=== PATIENT | male | born 1985 ===

== ENCOUNTER 2020-05-08 12:11 | Inpatient (IN) | payer OTHER, SELFPAY ==
[2020-05-08] MEDS ORDERED: ACETAMINOPHEN 500 MG TAB PO STA (12:26)
[2020-05-08] MEDS ORDERED: SODIUM CHLORIDE 0.9% 1000 ML 1,000 ML IV ONE (12:28)
[2020-05-08] MEDS ORDERED: AZITHROMYCIN 500 MG in SODIUM CHLORIDE 0.9% 250ML 250 ML IV ONE (13:00)
[2020-05-08] MEDS ORDERED: cefTRIAXone/NS 1 GM/50 ML 1 GM/50 ML BAG IV ONE (13:21)
[2020-05-08] MEDS ORDERED: dexAMETHasone 4 MG/ML VIAL IV ONE (13:23)
--- NOTE | 2020-05-08 13:26 | XRay Report ---
CHEST 1 VIEW 05/08/2020 12:50 PM INDICATION / CLINICAL INFORMATION: pneumonia. COMPARISON: None available. FINDINGS: SUPPORT DEVICES: None. HEART / MEDIASTINUM: No significant abnormality. LUNGS / PLEURA: Moderately extensive bilateral patchy pulmonary opacities. No pneumothorax. ADDITIONAL FINDINGS: No significant additional findings. IMPRESSION: 1. Bilateral pulmonary opacities. Although nonspecific, atypical or viral pneumonia could be consider ed. Signer Name: Linda Swann MD Signed: 05/08/2020 1:21 PM Workstation Name: [id number]
--- NOTE | 2020-05-08 13:26 | Emergency Department Report ---
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 He tested positive for COVID at [facility] recently. I presume this was a PCR and not an antibody test. He has had a cough and fever. He became dyspneic on exertion. He stated that he tried to stay home but with the shortness of breath he thought it was best to come to the hospital. He has no prior significant medical history. He does not take any routine medication. Patient works at [employer] and multiple employees are positive for COVID there. -: Gradual, days(s) - Related Data Allergies Allergy/AdvReac Type Severity Reaction Status Date / Time No Known Allergies Allergy Verified 05/08/20 12:47 ED Review of Systems ROS: Stated complaint: POS COVID/SOB Other details as noted in HPI ED Past Medical Hx - Past Medical History Previous Medical History?: No - Surgical History Past Surgical History?: No - Social History Smoking Status: Never Smoker Substance Use Type: None ED Physical Exam - General Limitations: No Limitations ED Course Vital Signs 05/08/20 12:21 Temperature 101.2 F H Pulse Rate 111 H Respiratory 24 Rate Blood Pressure 140/81 [Right] O2 Sat by Pulse 92 Oximetry - Reevaluation(s) Reevaluation #1: Patient pulse oximetry improved from 92 to the high 90s with 2 L of nasal cannula supplemental oxygen. His work of breathing is good. He looks much better clinically than his x-ray. This I believe is typical for a COVID-19 pa tiekanika's. COVID-19 is strongly suspected. The patient was given 6 mg of dexamethasone consistent with the recent [place] study of 11,000 patients showing benefit in hypoxic patients. He was also given antibiotics coverage with ceftriaxone and a azithromycin.his supplemental COVID-19 labs are consistent with COVID-19 infection. Hospitalist has been noted of the need to admit. 05/08/20 15:02 ED Medical Decision Making - Lab Data Result diagrams: 05/08/20 13:30 05/08/20 13:30 Laboratory Results - last 24 hr 0605/08/20 05/08/20 13:30 13:30 13:30 WBC 8.3 RBC 5.35 H Hgb 14.5 Hct 42.9 MCV 80 L MCH 27 L MCHC 34 RDW 13.9 Plt Count 177 Lymph % (Auto) 6.7 L [place] % (Auto) 6.0 Eos % (Auto) 0.0 Baso % (Auto) 0.1 Lymph # 0.6 L [place] # 0.5 Eos # 0.0 Baso # 0.0 Seg Neutrophils % 87.2 H Seg Neutrophils # 7.3 PT 13.7 INR 1.07 D-Dimer 6025.93 H VBG pH Sodium Potassium Chloride Carbon Dioxide Anion Gap BUN Creatinine Estimated GFR BUN/Creatinine Ratio Glucose Lactic Acid 1.20 Calcium Magnesium Ferritin Total Bilirubin Direct Bilirubin AST ALT Alkaline Phosphatase Lactate Dehydrogenase C-Reactive Protein Total Protein Albumin Albumin/Globulin Ratio 05/08/20 05/08/20 05/08/20 13:30 13:30 13:30 WBC RBC Hgb Hct MCV MCH MCHC RDW Plt Count Lymph % (Auto) [place] % (Auto) Eos % (Auto) Baso % (Auto) Lymph # [place] # Eos # Baso # Seg Neutrophils % Seg Neutrophils # PT INR D-Dimer VBG pH 7.411 Sodium 133 L Potassium 4.7 Chloride 95.9 L Carbon Dioxide 25 Anion Gap 17 BUN 14 Creatinine 1.0 Estimated GFR > 60 BUN/Creatinine Ratio 14 Glucose 103 H Lactic Acid Calcium 8.4 Magnesium 2.40 H Ferritin 1530.0 H Total Bilirubin 0.50 Direct Bilirubin < 0.2 AST 149 H ALT 102 H Alkaline Phosphatase 73 Lactate Dehydrogenase 870 H C-Reactive Protein 19.70 H Total Protein 7.2 Albumin 3.7 L Albumin/Globulin Ratio 1.1 - EKG Data -: EKG Interpreted by Me EKG shows normal: sinus rhythm, axis, intervals, QRS complexes, ST-T waves Rate: normal - EKG Data Interpretation: normal EKG - Radiology Data Radiology results: report reviewed, image reviewed (IMPRESSION: ) interpreted by me: C/W COVID 19 infection. Critical care attestation.: If time is entered above; I have spent that time in minutes in the direct care of this critically ill patient, excluding procedure time. ED Disposition Clinical Impression: Hypoxia, COVID-19 Bilateral pneumonia Qualifiers: Pneumonia type: due to unspecified organism Lung location: unspecified part of lung Qualified Code(s): J18.9 - Pneumonia, unspecified organism Disposition: 09 OP ADMIT IP TO THIS HOSP Is pt being admited?: Yes Does the pt Need Aspirin: No Condition: Stable Instructions: Bacterial Pneumonia (ED) Referrals: PRIMARY CARE, [Primary Care Provider] - 3-5 Days Time of Disposition: 15:07
[2020-05-08 13:51] LABS: Basophils % (Auto) 0.1 % (0.0-1.8); Hematocrit 42.9 % (35.5-45.6); Hemoglobin 14.5 gm/dl (11.8-15.2); Lymphocytes # (Auto) 0.6 K/mm3 (1.2-5.4); Lymphocytes % (Auto) 6.7 % (13.4-35.0); Mean Corpuscular HGB Conc 34 % (32-34); Mean Corpuscular Volume 80 fl (84-94); Monocytes # (Auto) 0.5 K/mm3 (0.0-0.8); Platelet Count 177 K/mm3 (140-440); Red Blood Count 5.35 M/mm3 (3.65-5.03); Red Cell Distribution Width 13.9 % (13.2-15.2)
[2020-05-08 14:06] LABS: INR 1.07 (0.87-1.13)
[2020-05-08 14:09] LABS: Alanine Aminotransferase 102 units/L (7-56); Albumin 3.7 g/dL (3.9-5); BUN/Creatinine Ratio 14; Blood Urea Nitrogen 14 mg/dL (9-20); Calcium 8.4 mg/dL (8.4-10.2); Hemolysis Index 0
[2020-05-08 14:10] LABS: Bilirubin,Direct < 0.2 mg/dL (0-0.2)
[2020-05-08 15:18] LABS: Bilirubin,Urine NEG (Negative); Blood,Urine SM (Negative); Color,Urine Yellow (Yellow); Urobilinogen,Urine < 2.0 mg/dL (<2.0); WBC,Urine < 1.0 /HPF (0.0-6.0)
[2020-05-08] MEDS ORDERED: ACETAMINOPHEN 325 MG TAB PO PRN (16:11)
[2020-05-08] MEDS ORDERED: ONDANSETRON 4 MG/2 ML INJ IV PRN (16:11)
--- NOTE | 2020-05-08 16:11 | History and Physical Report ---
History of Present Illness Chief complaint: I feel sick, I cannot stop coughing History of present illness: 34 YO Male with Obesity Hypoventilation Syndrome presents to ED for evaluation. Patient states that he has been "feeling sick" over the past 5 days with persistently worsening symptoms over the same timeframe. Patient states that he has experienced dry cough, generalized weakness, malaise, decreased exercise tolerance, shortness of breath as well as fever. Patient states that he presented to [facility] and underwent COVID-19 testing and tested positive. Patient acknowledges exposure to COVID-19. Patient transported to [facility] via private vehicle for further care and evaluation. Patient seen and evaluated in the emergency department. Lab and imaging studies reviewed. Patient underwent chest x-ray which showed bilateral infiltrates consistent with pneumonia, as well as pulse oximetry of 89% with exertion. Patient found to have bilateral pneumonia complicated by acute hypoxemic respiratory failure suspected secondary to COVID-19. Patient admitted to medical floor and initiated on pneumonia protocol as well as COVID-19 protocol. Infectious disease service consulted in ED. Pulmonology service consulted in ED. Patient denies chest pain, palpitations, skin rash, unilateral leg swelling, calf pain, prolonged travel/immobility, individual/family history of DVT/PE/bleeding/blood clotting disorders. No prior admission for review. No medication listed for reconciliation at the time of my admission. Past History Past Medical History: other (See HPI) Past Surgical History: No surgical history, Other (Reviewed) Social history: single. denies: smoking, alcohol abuse, prescription drug abuse, IV drug use Family history: hypertension Medications and Allergies Allergies Allergy/AdvReac Type Severity Reaction Status Date / Time No Known Allergies Allergy Verified 05/08/20 12:47 Review of Systems Constitutional: fever, fatigue, weakness, malaise, no weight loss, no weight gain Ears, nose, mouth and throat: no ear pain, no ear discharge, no tinnitis, no decreased hearing, no nose pain, no nasal congestion Cardiovascular: no chest pain, no orthopnea, no palpitations, no rapid/irregular heart beat Respiratory: cough, cough with sputum, shortness of breath, dyspnea on exertion, no pain on inspiration Gastrointestinal: no abdominal pain, no nausea, no vomiting, no diarrhea, no constipation Genitourinary Male: no hematuria, no flank pain, no discharge, no urinary frequency, no urinary hesitancy Rectal: no pain, no incontinence, no bleeding Integumentary: no rash, no pruritis, no redness, no sores, no wounds Neurological: no transient paralysis, no paralysis, no weakness, no numbness, no tingling, no seizures Psychiatric: no anxiety, no memory loss, no change in sleep habits, no insomnia, no change in appetite, no change in libido Endocrine: no cold intolerance, no heat intolerance, no excessive thirst, no polydipsia, no polyuria, no nocturia Hematologic/Lymphatic: no easy bruising, no easy bleeding Allergic/Immunologic: no urticaria, no allergic rhinitis, no wheezing, no persistent infections, no angioedema Exam - Constitutional Vitals: Temp Pulse Resp BP Pulse Ox 101.2 F H 111 H 24 140/81 92 05/08/20 12:21 05/08/20 12:21 05/08/20 12:21 05/08/20 12:21 05/08/20 12:21 General appearance: Present: mild distress, obese - EENT Eyes: Present: PERRL ENT: hearing intact, clear oral mucosa - Neck Neck: Present: supple, normal ROM - Respiratory Respiratory effort: labored, accessory muscle use Respiratory: bilateral: diminished, rhonchi - Cardiovascular Heart Sounds: Present: S1 & S2. Absent: rub, click - Extremities Extremities: pulses symmetrical, No edema Peripheral Pulses: within normal limits - Abdominal General gastrointestinal: Present: soft, non-tender, non-distended, normal bowel sounds Male genitourinary: Present: normal - Integumentary Integumentary: Present: clear, warm, dry - Musculoskeletal Musculoskeletal: gait normal, strength equal bilaterally - Psychiatric Psychiatric: appropriate mood/affect, intact judgment & insight - Neurologic Neurologic: CNII-XII intact, moves all extremities Results - Labs CBC & Chem 7: 05/08/20 13:30 05/08/20 13:30 Labs: Abnormal lab results 05/08/20 05/08/20 05/08/20 Range/Units 13:30 13:30 13:30 RBC 5.35 H (3.65-5.03) M/mm3 MCV 80 L (84-94) fl MCH 27 L (28-32) pg Lymph % (Auto) 6.7 L (13.4-35.0) % Lymph # 0.6 L (1.2-5.4) K/mm3 Seg Neutrophils % 87.2 H (40.0-70.0) % D-Dimer 6025.93 H (0-234) ng/mlDDU Sodium (137-145) mmol/L Chloride (98-107) mmol/L Glucose (75-100) mg/dL Magnesium (1.7-2.3) mg/dL Ferritin 1530.0 H (13.0-400.0) ng/mL AST (5-40) units/L ALT (7-56) units/L Lactate Dehydrogenase (91-180) units/L C-Reactive Protein (0.00-1.30) mg/dL Albumin (3.9-5) g/dL 05/08/20 Range/Units 13:30 RBC (3.65-5.03) M/mm3 MCV (84-94) fl MCH (28-32) pg Lymph % (Auto) (13.4-35.0) % Lymph # (1.2-5.4) K/mm3 Seg Neutrophils % (40.0-70.0) % D-Dimer (0-234) ng/mlDDU Sodium 133 L (137-145) mmol/L Chloride 95.9 L (98-107) mmol/L Glucose 103 H (75-100) mg/dL Magnesium 2.40 H (1.7-2.3) mg/dL Ferritin (13.0-400.0) ng/mL AST 149 H (5-40) units/L ALT 102 H (7-56) units/L Lactate Dehydrogenase 870 H (91-180) units/L C-Reactive Protein 19.70 H (0.00-1.30) mg/dL Albumin 3.7 L (3.9-5) g/dL Assessment and Plan - Patient Problems (1) Acute hypoxemic respiratory failure Current Visit: Yes Status: Acute Plan to address problem: Chest x-ray, supplemental oxygen, pulse oximetry, incentive spirometry, prone positioning while in bed, pulmonary toilet, pulmonology team consulted in ED. (2) Obesity hypoventilation syndrome Current Visit: Yes Status: Acute Plan to address problem: Supplemental oxygen, pulse oximetry, noninvasive positive pressure ventilation as clinically indicated, increase physical activity at discharge, outpatient pulmonology evaluation for sleep study. (3) Bilateral pneumonia Current Visit: Yes Status: Acute Qualifiers: Pneumonia type: due to unspecified organism Lung location: unspecified part of lung Qualified Code(s): J18.9 - Pneumonia, unspecified organism Plan to address problem: Pneumonia protocol: Chest x-ray, CBC, CMP, supplemental oxygen, pulse oximetry, IV antibiotic therapy, incentive spirometry, pulmonary toilet. (4) COVID-19 Current Visit: Yes Status: Acute Plan to address problem: COVID-19 protocol: Infectious disease service consulted, pulmonology team consulted, coronavirus PCR ordered in ED. Prone positioning while in bed. (5) DVT prophylaxis Current Visit: Yes Status: Acute Plan to address problem: SCD to bilateral lower extremities while in bed, prophylactic heparin
[2020-05-08] MEDS: HEPARIN 5,000 UNIT/1 ML VIAL SUB-Q SCH (22:26)
[2020-05-09] MEDS ORDERED: MORPHINE 2 MG/1 ML INJ IV ONE ×2 (00:12→05:43)
[2020-05-09] MEDS: guaiFENesin DM 200/20 MG ORAL LIQD 10 ML PO PRN ×2 (05:35→21:24)
[2020-05-09 05:59] LABS: Basophils % (Auto) 0.1 % (0.0-1.8); Hematocrit 42.2 % (35.5-45.6); Hemoglobin 13.9 gm/dl (11.8-15.2); Lymphocytes # (Auto) 0.6 K/mm3 (1.2-5.4); Lymphocytes % (Auto) 6.9 % (13.4-35.0); Mean Corpuscular HGB Conc 33 % (32-34); Mean Corpuscular Volume 83 fl (84-94); Monocytes # (Auto) 0.5 K/mm3 (0.0-0.8); Monocytes % (Auto) 5.8 % (0.0-7.3); Platelet Count 183 K/mm3 (140-440); Red Blood Count 5.12 M/mm3 (3.65-5.03)
[2020-05-09 06:58] LABS: BUN/Creatinine Ratio 14; Blood Urea Nitrogen 13 mg/dL (9-20); Calcium 8.1 mg/dL (8.4-10.2); Hemolysis Index 6
--- NOTE | 2020-05-09 09:13 | Consultation ---
History of Present Illness Consult date: 05/09/20 Requesting physician: MAT ATWOOD Reason for consult: hypoxemia History of present illness: 34 y/o male admitted with acute respiratory failure. CXR showing bilateral alveolar infiltrates and mild cardiomegaly. Febrile at 101.2 on admission. Concern for COVID so placed in isolation. Started on Rocephin and Azithro. Currently on HFNC at 14 liters and 100% with sat of 92. Per charting, patient had a positive COVID test at [facility]. Past History Past Medical History: other ([facility]) Past Surgical History: No surgical history, Other (Reviewed) Social history: single. denies: smoking, alcohol abuse, prescription drug abuse, IV drug use Family history: hypertension Medications and Allergies Allergies Allergy/AdvReac Type Severity Reaction Status Date / Time No Known Allergies Allergy Verified 05/08/20 12:47 Home Medications Medication Instructions Recorded Confirmed Last Taken Type No Known Home Medications [No 05/08/20 05/08/20 Unknown History Reported Home Medications] Active Meds: Active Medications Acetaminophen (Tylenol) 650 mg PO Q4H PRN PRN Reason: Pain MILD(1-3)/Fever >100.5/MESSINA Guaifenesin (Guaifenesin Dm Syrup) 10 ml PO Q6H PRN PRN Reason: Cough Last Admin: 05/09/20 05:35 Dose: 10 ml Documented by: Heparin Sodium (Porcine) (Heparin) 5,000 unit SUB-Q Q12HR POP Last Admin: 05/08/20 22:26 Dose: 5,000 unit Documented by: Ceftriaxone Sodium (Rocephin/Ns 2 Gm/100 Ml) 2 gm in 100 mls @ 200 mls/hr IV Q24HR POP; Protocol Azithromycin 500 mg/ Sodium (Chloride) 250 mls @ 250 mls/hr IV Q24HR POP; Protocol Methylprednisolone Sodium Succinate (Solu-Medrol) 40 mg IV Q8HR POP Ondansetron HCl (Zofran) 4 mg IV Q8H PRN PRN Reason: Nausea And Vomiting Last Admin: 05/09/20 00:11 Dose: 4 mg Documented by: Sodium Chloride (Sodium Chloride Flush Syringe 10 Ml) 10 ml IV BID POP Last Admin: 05/08/20 22:26 Dose: 10 ml Documented by: Sodium Chloride (Sodium Chloride Flush Syringe 10 Ml) 10 ml IV PRN PRN PRN Reason: LINE FLUSH Physical Examination Vital signs: Vital Signs Temp Pulse Resp BP Pulse Ox 101.2 F H 111 H 24 140/81 92 05/08/20 12:21 05/08/20 12:21 05/08/20 12:21 05/08/20 12:21 05/08/20 12:21 General appearance: other (No exam secondary to conservation of PPE. Hospitalist to see this am) Results - Laboratory Findings CBC and BMP: 05/09/20 05:25 05/09/20 05:25 PT/INR, D-dimer PT 13.7 Sec. (12.2-14.9) 05/08/20 13:30 INR 1.07 (0.87-1.13) 05/08/20 13:30 D-Dimer 6025.93 ng/mlDDU (0-234) H 05/08/20 13:30 Abnormal lab findings: Abnormal Labs 05/08/20 05/08/20 05/08/20 13:30 13:30 13:30 RBC 5.35 H MCV 80 L MCH 27 L Lymph % (Auto) 6.7 L Lymph # 0.6 L Seg Neutrophils % 87.2 H D-Dimer 6025.93 H Sodium Chloride Glucose Calcium Magnesium Ferritin 1530.0 H AST ALT Lactate Dehydrogenase C-Reactive Protein Albumin 05/08/20 05/09/20 05/09/20 13:30 05:25 05:25 RBC 5.12 H MCV 83 L MCH 27 L Lymph % (Auto) 6.9 L Lymph # 0.6 L Seg Neutrophils % 87.2 H D-Dimer Sodium 133 L 136 L Chloride 95.9 L Glucose 103 H 145 H Calcium 8.1 L Magnesium 2.40 H Ferritin AST 149 H ALT 102 H Lactate Dehydrogenase 870 H C-Reactive Protein 19.70 H Albumin 3.7 L - Diagnostic Findings Chest x-ray: image reviewed Assessment and Plan 34 y/o male with positive COVID testing at outside facility, admitted with acute respiratory failure. 1. Agree with isolation 2. Stopped Prednisone and placed on solumedrol 40 IV q8 3. Agree with ID consult and need to consider actemera and remdisniver 4. Prone position as much as possible during the day and sleep prone at night 5. Did check BNP given morbid obesity and cardiomegaly on CXR, hold lasix, but does not need extra volume. Need to run on the net negative side. 6. Guarded prognosis, high risk for decompensation given morbid obesity. Will consider PPV if necessary to avoid intubation.
[2020-05-09] MEDS: cefTRIAXone/NS 2 GM/100 ML 2 GM/100 ML BAG IV SCH (09:58)
[2020-05-09] MEDS: methylPREDNISolone Sod Succinate 40 MG/1 ML INJ IV SCH ×3 (09:59→21:24)
[2020-05-09] MEDS: HEPARIN 5,000 UNIT/1 ML VIAL SUB-Q SCH ×2 (09:59→21:24)
[2020-05-09] MEDS ORDERED: AZITHROMYCIN 500 MG in SODIUM CHLORIDE 0.9% 250ML 250 ML IV SCH (10:00)
[2020-05-09] MEDS ORDERED: predniSONE 20 MG TAB PO SCH (10:00)
--- NOTE | 2020-05-09 13:48 | Consultation ---
History of Present Illness - Reason for Consult Consult date: 05/09/20 - History of Present Illness 34-year-old male past medical history obesity admitted with COVID-19. He notes that his symptoms began approximately 5 days prior to admission, and included dry cough with associated weakness, malaise, shortness of breath and fevers. He went to [facility] to get COVID-19 testing and tested positive at that time. He does note positive exposures to people with COVID-19. He is to be hypoxic on adm ission, and is now on high flow nasal cannula. Febrile to 101.2 with a normal white count. Current receiving ceftriaxone and azithromycin. COVID-19 testing positive. Blood and urine cultures are c urrently pending. Procalcitonin is normal. Imaging personally reviewed: Chest x-ray: Bilateral opacities. Review of Systems: Bold if positive, otherwise negative General: fevers, chills, rigors HEENT: visual disturbance, diplopia, eye pain Respiratory: cough, sputum, hemoptysis, shortness of breath Cardiovascular: chest pain, syncope Gastrointestinal: nausea, vomiting, diarrhea, abdominal pain Genitourinary: dysuria, hematuria, flank pain Musculoskeletal: neck pain, back pain, joint pain, edema Neurologic: headaches, seizures Hematologic: easy bruising or bleeding Endocrine: night sweats, acute weight loss Skin: rash, jaundice, redness Psychiatric: suicidal, homicidal ideation Past History Past Medical History: other ([facility]) Past Surgical History: No surgical history, Other (Reviewed) Social history: single. denies: smoking, alcohol abuse, prescription drug abuse, IV drug use Family history: hypertension Medications and Allergies Allergies Allergy/AdvReac Type Severity Reaction Status Date / Time No Known Allergies Allergy Verified 05/08/20 12:47 Home Medications Medication Instructions Recorded Confirmed Last Taken Type No Known Home Medications [No 05/08/20 05/08/20 Unknown History Reported Home Medications] Active Meds: Active Medications Acetaminophen (Tylenol) 650 mg PO Q4H PRN PRN Reason: Pain MILD(1-3)/Fever >100.5/MESSINA Azithromycin (Zithromax) 500 mg PO QDAY POP Guaifenesin (Guaifenesin Dm Syrup) 10 ml PO Q6H PRN PRN Reason: Cough Last Admin: 05/09/20 05:35 Dose: 10 ml Documented by: Heparin Sodium (Porcine) (Heparin) 5,000 unit SUB-Q Q12HR [facility] Last Admin: 05/09/20 09:59 Dose: 5,000 unit Documented by: Ceftriaxone Sodium (Rocephin/Ns 2 Gm/100 Ml) 2 gm in 100 mls @ 200 mls/hr IV Q24HR [facility]; Protocol Last Admin: 05/09/20 09:58 Dose: 200 mls/hr Documented by: REMDESIVIR 200 mg/ Sodium (Chloride) 250 mls @ 500 mls/hr IV ONCE ONE Stop: 05/09/20 15:29 REMDESIVIR 100 mg/ Sodium (Chloride) 250 mls @ 500 mls/hr IV Q24H [facility] Stop: 05/13/20 15:29 Sodium Chloride (Nacl 0.9%) 50 mls @ 200 mls/hr IV Q24H [facility] Stop: 05/13/20 15:14 Methylprednisolone Sodium Succinate (Solu-Medrol) 40 mg IV Q8HR [facility] Last Admin: 05/09/20 09:59 Dose: 40 mg Documented by: Ondansetron HCl (Zofran) 4 mg IV Q8H PRN PRN Reason: Nausea And Vomiting Last Admin: 05/09/20 00:11 Dose: 4 mg Documented by: Sodium Chloride (Sodium Chloride Flush Syringe 10 Ml) 10 ml IV BID [facility] Last Admin: 05/09/20 10:00 Dose: 10 ml Documented by: Sodium Chloride (Sodium Chloride Flush Syringe 10 Ml) 10 ml IV PRN PRN PRN Reason: LINE FLUSH Physical Examination - Physical Exam Narrative exam: Physical exam deferred due to PPE conservation strategy. Please refer to primary team note for full exam. - Constitutional Vitals: Vital Signs Temp Pulse Resp BP Pulse Ox 99.0 F 70 16 116/70 92 05/09/20 05:17 05/09/20 05:17 05/09/20 05:17 05/09/20 05:17 05/09/20 08:47 Temperature -Last 24 Hours Temperature 99.0 F Results - Labs CBC & Chem 7: 05/09/20 05:25 05/09/20 05:25 Labs: Abnormal lab results 05/08/20 05/08/20 05/08/20 Range/Units 13:30 13:30 13:30 RBC 5.35 H (3.65-5.03) M/mm3 MCV 80 L (84-94) fl MCH 27 L (28-32) pg Lymph % (Auto) 6.7 L (13.4-35.0) % Lymph # 0.6 L (1.2-5.4) K/mm3 Seg Neutrophils % 87.2 H (40.0-70.0) % D-Dimer 6025.93 H (0-234) ng/mlDDU Sodium (137-145) mmol/L Chloride (98-107) mmol/L Glucose (75-100) mg/dL Calcium (8.4-10.2) mg/dL Magnesium (1.7-2.3) mg/dL Ferritin 1530.0 H (13.0-400.0) ng/mL AST (5-40) units/L ALT (7-56) units/L Lactate Dehydrogenase (91-180) units/L C-Reactive Protein (0.00-1.30) mg/dL Albumin (3.9-5) g/dL Coronavirus (PCR) (Negative) 05/08/20 05/08/20 05/09/20 Range/Units 13:30 Unknown 05:25 RBC 5.12 H (3.65-5.03) M/mm3 MCV 83 L (84-94) fl MCH 27 L (28-32) pg Lymph % (Auto) 6.9 L (13.4-35.0) % Lymph # 0.6 L (1.2-5.4) K/mm3 Seg Neutrophils % 87.2 H (40.0-70.0) % D-Dimer (0-234) ng/mlDDU Sodium 133 L (137-145) mmol/L Chloride 95.9 L (98-107) mmol/L Glucose 103 H (75-100) mg/dL Calcium (8.4-10.2) mg/dL Magnesium 2.40 H (1.7-2.3) mg/dL Ferritin (13.0-400.0) ng/mL AST 149 H (5-40) units/L ALT 102 H (7-56) units/L Lactate Dehydrogenase 870 H (91-180) units/L C-Reactive Protein 19.70 H (0.00-1.30) mg/dL Albumin 3.7 L (3.9-5) g/dL Coronavirus (PCR) Positive A (Negative) 05/09/20 Range/Units 05:25 RBC (3.65-5.03) M/mm3 MCV (84-94) fl MCH (28-32) pg Lymph % (Auto) (13.4-35.0) % Lymph # (1.2-5.4) K/mm3 Seg Neutrophils % (40.0-70.0) % D-Dimer (0-234) ng/mlDDU Sodium 136 L (137-145) mmol/L Chloride (98-107) mmol/L Glucose 145 H (75-100) mg/dL Calcium 8.1 L (8.4-10.2) mg/dL Magnesium (1.7-2.3) mg/dL Ferritin (13.0-400.0) ng/mL AST (5-40) units/L ALT (7-56) units/L Lactate Dehydrogenase (91-180) units/L C-Reactive Protein (0.00-1.30) mg/dL Albumin (3.9-5) g/dL Coronavirus (PCR) (Negative) Assessment and Plan Cultures: Blood culture 05/08/2020 pending Urine culture 05/08/2020 pending A/P: 34-year-old man past medical history obesity admitted with COVID-19. #COVID-19 pneumonia: Patient hypoxic, as such we will start Remdesivir. LFTs are elevated, however within the 5 times upper limit of normal range. If oxygen status worsens tomorrow, will give Actemra at that time. #Obesity: High risk of poor outcome with COVID-19 Recs: -Started Remdesivir for 5-day course (day 1 of 5) -Consider Actemra in a.m. -Follow inflammatory markers (COVID-19 order set) every 48-72 hours to monitor for disease progression -Steroids per pulmonary Thank you for the consult, we will continue to follow. MD Pat [facility] M: [phone] O: [phone] F: [phone]
[2020-05-09] MEDS ORDERED: REMDESIVIR 200 MG in SODIUM CHLORIDE 0.9% 250ML 250 ML IV ONE (15:00)
[2020-05-09] MEDS: SODIUM CHLORIDE 0.9% 50 ML IV SCH (15:59)
--- NOTE | 2020-05-09 16:25 | Progress Note ---
Subjective Date of service: 05/09/20 Interval history: 34-year-old male with no known past medical history admitted with COVID-19. He notes that his symptoms began approximately 5 days prior to admission, and included dry cough with associated weakness, malaise, shortness of breath and fevers. He went to [facility] to get COVID-19 testing and tested positive at that time. He does note positive exposures to people with COVID-19. He is now on high flow nasal cannula. 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: Alert and oriented x3, moves all extremities Assessment and plan COVID-19 pneumonia ID note reviewed Started on Remdesivir Continue empiric Rocephin Acute hypoxic respiratory failure Pulmonary note reviewed and appreciated Continue oxygen via high flow nasal cannula Continue IV Solu-Medrol Obesity Discussed with patient regarding weight loss and exercise possible Long-term side effects of obesity were explained Objective - Constitutional Vitals: Vital Signs - 12hr 05/09/20 05/09/20 05/09/20 05:17 08:24 08:47 Temperature 99.0 F Pulse Rate 70 Respiratory 16 Rate Blood Pressure 116/70 O2 Sat by Pulse 97 90 92 Oximetry 05/09/20 11:27 Temperature 98.9 F Pulse Rate 74 Respiratory 20 Rate Blood Pressure 109/57 O2 Sat by Pulse 97 Oximetry - Labs CBC & Chem 7: 05/09/20 05:25 05/09/20 05:25 Labs: Abnormal lab results 05/08/20 05/09/20 05/09/20 Range/Units Unknown 05:25 05:25 RBC 5.12 H (3.65-5.03) M/mm3 MCV 83 L (84-94) fl MCH 27 L (28-32) pg Lymph % (Auto) 6.9 L (13.4-35.0) % Lymph # 0.6 L (1.2-5.4) K/mm3 Seg Neutrophils % 87.2 H (40.0-70.0) % Sodium 136 L (137-145) mmol/L Glucose 145 H (75-100) mg/dL Calcium 8.1 L (8.4-10.2) mg/dL Coronavirus (PCR) Positive A (Negative)
[2020-05-10] MEDS: methylPREDNISolone Sod Succinate 40 MG/1 ML INJ IV SCH ×3 (06:00→21:50)
[2020-05-10] MEDS: guaiFENesin DM 200/20 MG ORAL LIQD 10 ML PO PRN (06:00)
[2020-05-10 06:47] LABS: Alanine Aminotransferase 98 units/L (7-56); Albumin 3.5 g/dL (3.9-5); BUN/Creatinine Ratio 19; Blood Urea Nitrogen 17 mg/dL (9-20); Calcium 8.4 mg/dL (8.4-10.2); Hemolysis Index 13
[2020-05-10] MEDS: cefTRIAXone/NS 2 GM/100 ML 2 GM/100 ML BAG IV SCH (10:23)
[2020-05-10] MEDS: AZITHROMYCIN 250 MG TAB PO SCH (10:23)
[2020-05-10] MEDS: HEPARIN 5,000 UNIT/1 ML VIAL SUB-Q SCH ×2 (10:32→21:51)
--- NOTE | 2020-05-10 12:34 | Progress Note ---
Assessment and Plan 34 y/o male with positive COVID testing at outside facility, admitted with acute respiratory failure. 1. Agree with isolation 2. Continue IV steroids for seven days. Essentially today is day 2. 3. Follow up ID recs. 4. Prone position as much as possible during the day and sleep prone at night 5. Guarded prognosis, high risk for decompensation given morbid obesity. Will consider PPV if necessary to avoid intubation. Subjective Date of service: 05/10/20 Interval history: No acute events overnight. Oxygen requirement had decreased to 80. Good sats. Got Remdisnivir yesterday. Objective Vital Signs - 12hr 05/10/20 05/10/20 05/10/20 03:55 04:16 11:00 Temperature 98.3 F Pulse Rate 66 Respiratory 20 Rate Blood Pressure 120/70 O2 Sat by Pulse 98 94 94 Oximetry Constitutional: other (No exam secondary to conservation of PPE. Hospitalist to see this am) CBC and BMP: 05/09/20 05:25 05/10/20 06:02 ABG, PT/INR, D-dimer: PT/INR, D-dimer PT 13.7 Sec. (12.2-14.9) 05/08/20 13:30 INR 1.07 (0.87-1.13) 05/08/20 13:30 D-Dimer 6025.93 ng/mlDDU (0-234) H 05/08/20 13:30 Abnormal lab findings: Abnormal Labs 05/08/20 05/08/20 05/08/20 13:30 13:30 13:30 RBC 5.35 H MCV 80 L MCH 27 L Lymph % (Auto) 6.7 L Lymph # 0.6 L Seg Neutrophils % 87.2 H D-Dimer 6025.93 H Sodium Chloride Glucose Calcium Magnesium Ferritin 1530.0 H AST ALT Lactate Dehydrogenase C-Reactive Protein Albumin Coronavirus (PCR) 05/08/20 05/08/20 05/09/20 13:30 Unknown 05:25 RBC 5.12 H MCV 83 L MCH 27 L Lymph % (Auto) 6.9 L Lymph # 0.6 L Seg Neutrophils % 87.2 H D-Dimer Sodium 133 L Chloride 95.9 L Glucose 103 H Calcium Magnesium 2.40 H Ferritin AST 149 H ALT 102 H Lactate Dehydrogenase 870 H C-Reactive Protein 19.70 H Albumin 3.7 L Coronavirus (PCR) Positive A 05/09/20 05/10/20 05:25 06:02 RBC MCV MCH Lymph % (Auto) Lymph # Seg Neutrophils % D-Dimer Sodium 136 L Chloride Glucose 145 H 142 H Calcium 8.1 L Magnesium Ferritin AST 94 H ALT 98 H Lactate Dehydrogenase C-Reactive Protein Albumin 3.5 L Coronavirus (PCR)
--- NOTE | 2020-05-10 12:40 | Progress Note ---
Assessment and Plan Cultures: Blood culture 05/08/2020 pending Urine culture 05/08/2020 pending A/P: 34-year-old man past medical history obesity admitted with COVID-19. #COVID-19 pneumonia: Patient hypoxic, as such we will start Remdesivir. LFTs are elevated, however within the 5 times upper limit of normal range. If oxygen status worsens tomorrow, will give Actemra at that time. #Obesity: High risk of poor outcome with COVID-19 Recs: -Started Remdesivir for 5-day course (day 2 of 5) -Patient with stable oxygen requirements, consider Actemra if O2 sats worsened -Follow inflammatory markers (COVID-19 order set) every 48-72 hours to monitor for disease progression -Steroids per pulmonary Thank you for the consult, we will continue to follow. Obed Hsu MD [facility] ([facility]) M: [phone] O: [phone] F: [phone] Subjective Date of service: 05/10/20 Interval history: Afebrile with a normal white count. Now on Remdesivir. Stable oxygen saturations Objective - Exam Narrative Exam: Physical exam deferred due to PPE conservation strategy. Please refer to primary team note for full exam. - Constitutional Vitals: Vital Signs Temp Pulse Resp BP Pulse Ox 98.3 F 66 20 120/70 94 05/10/20 04:16 05/10/20 04:16 05/10/20 04:16 05/10/20 04:16 05/10/20 11:00 Temperature -Last 24 Hours Temperature 98.3 F Temperature 98.7 F Temperature 97.9 F - Labs CBC & Chem 7: 05/09/20 05:25 05/10/20 06:02 Labs: Abnormal lab results 05/08/20 05/10/20 Range/Units Unknown 06:02 Glucose 142 H (75-100) mg/dL AST 94 H (5-40) units/L ALT 98 H (7-56) units/L Albumin 3.5 L (3.9-5) g/dL Coronavirus (PCR) Positive A (Negative)
--- NOTE | 2020-05-10 13:37 | Progress Note ---
Subjective Date of service: 05/10/20 Interval history: 34-year-old male with no known past medical history admitted with COVID-19. He notes that his symptoms began approximately 5 days prior to admission, and included dry cough with associated weakness, malaise, shortness of breath and fevers. He went to [facility] to get COVID-19 testing and tested positive at that time. He does note positive exposures to people with COVID-19. 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: Alert and oriented x3, moves all extremities Assessment and plan COVID-19 pneumonia ID note reviewed Continue Remdesivir Continue empiric Rocephin Patient to lie in prone position as much as possible Acute hypoxic respiratory failure Pulmonary note reviewed and appreciated Continue oxygen via high flow nasal cannula Continue IV Solu-Medrol Obesity Discussed with patient regarding weight loss and exercise possible Long-term side effects of obesity were explained Objective - Constitutional Vitals: Vital Signs - 12hr 05/10/20 05/10/20 05/10/20 03:55 04:16 11:00 Temperature 98.3 F Pulse Rate 66 Respiratory 20 Rate Blood Pressure 120/70 O2 Sat by Pulse 98 94 94 Oximetry - Labs CBC & Chem 7: 05/09/20 05:25 05/10/20 06:02 Labs: Abnormal lab results 05/10/20 Range/Units 06:02 Glucose 142 H (75-100) mg/dL AST 94 H (5-40) units/L ALT 98 H (7-56) units/L Albumin 3.5 L (3.9-5) g/dL
[2020-05-10] MEDS: REMDESIVIR 100 MG in SODIUM CHLORIDE 0.9% 250ML 250 ML IV SCH (16:46)
[2020-05-10] MEDS: SODIUM CHLORIDE 0.9% 50 ML IV SCH (16:46)
[2020-05-10] MEDS ORDERED: TEMAZEPAM 15 MG CAP PO ONE (23:52)
[2020-05-11] MEDS: methylPREDNISolone Sod Succinate 40 MG/1 ML INJ IV SCH ×3 (05:56→22:31)
[2020-05-11 06:57] LABS: C-Reactive Protein 3.1 mg/dL (0.00-1.30)
[2020-05-11 06:59] LABS: Alanine Aminotransferase 84 units/L (7-56); Albumin 3.4 g/dL (3.9-5); BUN/Creatinine Ratio 24; Blood Urea Nitrogen 19 mg/dL (9-20); Calcium 8.3 mg/dL (8.4-10.2); Hemolysis Index 4
[2020-05-11] MEDS: cefTRIAXone/NS 2 GM/100 ML 2 GM/100 ML BAG IV SCH (10:57)
[2020-05-11] MEDS: HEPARIN 5,000 UNIT/1 ML VIAL SUB-Q SCH ×2 (10:57→22:32)
[2020-05-11] MEDS: AZITHROMYCIN 250 MG TAB PO SCH (10:57)
--- NOTE | 2020-05-11 14:00 | Progress Note ---
Subjective Date of service: 05/11/20 Interval history: 34-year-old male with no known past medical history admitted with COVID-19. He notes that his symptoms began approximately 5 days prior to admission, and included dry cough with associated weakness, malaise, shortness of breath and fevers. He went to [facility] to get COVID-19 testing and tested positive at that time. He does note positive exposures to people with COVID-19. Patient is alert and oriented and complains of shortness of breath with minimal effort ID and pulmonary notes reviewed and appreciated On examination Patient was only seen via face time, no physical examination was done today He states his breathing is better but still gets short of breath with exertion he denies any other complaints Assessment and plan COVID-19 pneumonia ID note reviewed Continue Remdesivir Continue empiric Rocephin Patient to lie in prone position as much as possible Acute hypoxic respiratory failure Pulmonary note reviewed and appreciated Continue oxygen via high flow nasal cannula Continue IV Solu-Medrol Will request respiratory manager to provide longer cannula for oxygen delivery so that he can walk to the restroom with oxygen Obesity Discussed with patient regarding weight loss and exercise possible Long-term side effects of obesity were explained Objective - Constitutional Vitals: Vital Signs - 12hr 05/11/20 05/11/20 05/11/20 03:20 05:20 07:50 Temperature 99.0 F Pulse Rate 80 Respiratory 19 18 Rate Blood Pressure Blood Pressure 110/60 [Right] O2 Sat by Pulse 99 98 93 Oximetry 05/11/20 11:28 Temperature 99.0 F Pulse Rate 63 Respiratory 20 Rate Blood Pressure 111/59 Blood Pressure [Right] O2 Sat by Pulse 95 Oximetry - Labs CBC & Chem 7: 05/09/20 05:25 05/11/20 06:16 Labs: Abnormal lab results 05/11/20 05/11/20 05/11/20 Range/Units 06:16 06:16 06:16 D-Dimer 9730.56 H (0-234) ng/mlDDU Glucose 141 H (75-100) mg/dL Calcium 8.3 L (8.4-10.2) mg/dL Ferritin 1223.0 H (13.0-400.0) ng/mL AST 56 H (5-40) units/L ALT 84 H (7-56) units/L Lactate Dehydrogenase (91-180) units/L C-Reactive Protein (0.00-1.30) mg/dL Albumin 3.4 L (3.9-5) g/dL 05/11/20 Range/Units 06:16 D-Dimer (0-234) ng/mlDDU Glucose (75-100) mg/dL Calcium (8.4-10.2) mg/dL Ferritin (13.0-400.0) ng/mL AST (5-40) units/L ALT (7-56) units/L Lactate Dehydrogenase 762 H (91-180) units/L C-Reactive Protein 3.10 H (0.00-1.30) mg/dL Albumin (3.9-5) g/dL
--- NOTE | 2020-05-11 14:46 | Progress Note ---
Assessment and Plan 34 y/o male with positive COVID testing at outside facility, admitted with acute respiratory failure. 1. Agree with isolation 2. Continue IV steroids for seven days. Essentially today is day 3. 3. Follow up ID recs. 4. Prone position as much as possible during the day and sleep prone at night 5. Guarded prognosis, high risk for decompensation given morbid obesity. Will consider PPV if necessary to avoid intubation. Subjective Date of service: 05/11/20 Interval history: No recent sats documented but early am satting 99% on 14 and 80%. Objective Vital Signs - 12hr 05/11/20 05/11/20 05/11/20 03:20 05:20 07:50 Temperature 99.0 F Pulse Rate 80 Respiratory 19 18 Rate Blood Pressure Blood Pressure 110/60 [Right] O2 Sat by Pulse 99 98 93 Oximetry 05/11/20 11:28 Temperature 99.0 F Pulse Rate 63 Respiratory 20 Rate Blood Pressure 111/59 Blood Pressure [Right] O2 Sat by Pulse 95 Oximetry Constitutional: other (No exam secondary to conservation of PPE. Hospitalist to see this am) CBC and BMP: 05/09/20 05:25 05/11/20 06:16 ABG, PT/INR, D-dimer: PT/INR, D-dimer PT 13.7 Sec. (12.2-14.9) 05/08/20 13:30 INR 1.07 (0.87-1.13) 05/08/20 13:30 D-Dimer 9730.56 ng/mlDDU (0-234) H 05/11/20 06:16 Abnormal lab findings: Abnormal Labs 05/08/20 05/08/20 05/08/20 13:30 13:30 13:30 RBC 5.35 H MCV 80 L MCH 27 L Lymph % (Auto) 6.7 L Lymph # 0.6 L Seg Neutrophils % 87.2 H D-Dimer 6025.93 H Sodium Chloride Glucose Calcium Magnesium Ferritin 1530.0 H AST ALT Lactate Dehydrogenase C-Reactive Protein Albumin Coronavirus (PCR) 05/08/20 05/08/20 05/09/20 13:30 Unknown 05:25 RBC 5.12 H MCV 83 L MCH 27 L Lymph % (Auto) 6.9 L Lymph # 0.6 L Seg Neutrophils % 87.2 H D-Dimer Sodium 133 L Chloride 95.9 L Glucose 103 H Calcium Magnesium 2.40 H Ferritin AST 149 H ALT 102 H Lactate Dehydrogenase 870 H C-Reactive Protein 19.70 H Albumin 3.7 L Coronavirus (PCR) Positive A 05/09/20 05/10/20 05/11/20 05:25 06:02 06:16 RBC MCV MCH Lymph % (Auto) Lymph # Seg Neutrophils % D-Dimer Sodium 136 L Chloride Glucose 145 H 142 H 141 H Calcium 8.1 L 8.3 L Magnesium Ferritin AST 94 H 56 H ALT 98 H 84 H Lactate Dehydrogenase C-Reactive Protein Albumin 3.5 L 3.4 L Coronavirus (PCR) 05/11/20 05/11/20 05/11/20 06:16 06:16 06:16 RBC MCV MCH Lymph % (Auto) Lymph # Seg Neutrophils % D-Dimer 9730.56 H Sodium Chloride Glucose Calcium Magnesium Ferritin 1223.0 H AST ALT Lactate Dehydrogenase 762 H C-Reactive Protein 3.10 H Albumin Coronavirus (PCR)
[2020-05-11] MEDS: REMDESIVIR 100 MG in SODIUM CHLORIDE 0.9% 250ML 250 ML IV SCH (14:49)
[2020-05-11] MEDS: SODIUM CHLORIDE 0.9% 50 ML IV SCH (15:28)
[2020-05-12] MEDS: methylPREDNISolone Sod Succinate 40 MG/1 ML INJ IV SCH ×3 (05:43→22:26)
[2020-05-12 06:37] LABS: Alanine Aminotransferase 106 units/L (7-56); Albumin 3.4 g/dL (3.9-5); BUN/Creatinine Ratio 26; Blood Urea Nitrogen 21 mg/dL (9-20); Calcium 8.2 mg/dL (8.4-10.2); Hemolysis Index 18
--- NOTE | 2020-05-12 07:57 | Progress Note ---
Subjective Date of service: 05/12/20 Interval history: 34-year-old male with no known past medical history admitted with COVID-19. He notes that his symptoms began approximately 5 days prior to admission, and included dry cough with associated weakness, malaise, shortness of breath and fevers. He went to [facility] to get COVID-19 testing and tested positive at that time. He does note positive exposures to people with COVID-19. Patient is alert and oriented and complains of shortness of breath with minimal effort ID and pulmonary notes reviewed and appreciated Patient seen and examined He states his breathing is better but still gets short of breath with exertion he denies any other complaints Denies fever or chills Denies chest pain, nausea or abdominal pain Assessment and plan COVID-19 pneumonia ID note reviewed Continue Remdesivir day 3 stop rocephin stopazithromycin Discussed with Dr. Siddiqi D-dimer increased from 0184-0321 We will start the patient on therapeutic Lovenox SQ Stop subcu heparin Discussed with Dr. Siddiqi and he agrees Patient to lie in prone position as much as possible Prognosis guarded Acute hypoxic respiratory failure Pulmonary note reviewed and appreciated Continue oxygen via high flow nasal cannula Continue IV Solu-Medrol 2-second pause x2 on telemetry monitoring Cardiology consult note reviewed and discussed with Dr. Williamson No further recommendations Continue to monitor Obesity Discussed with patient regarding weight loss and exercise possible Long-term side effects of obesity were explained Objective - Constitutional Vitals: Vital Signs - 12hr 05/11/20 05/11/20 05/11/20 20:00 21:11 23:00 Temperature 98.4 F Pulse Rate 66 Respiratory 20 18 Rate Blood Pressure 126/76 Blood Pressure [Right] O2 Sat by Pulse 95 96 96 Oximetry 05/12/20 05/12/20 03:16 05:19 Temperature 98.2 F Pulse Rate 52 L Respiratory 20 Rate Blood Pressure Blood Pressure 102/38 [Right] O2 Sat by Pulse 98 95 Oximetry General appearance: Present: mild distress - EENT Eyes: PERRL, EOM intact ENT: hearing intact, clear oral mucosa - Neck Neck: supple, normal ROM, no masses or JVD - Respiratory Respiratory effort: other (Mildly short of breath) Respiratory: bilateral: CTA, diminished - Breasts Breasts: deferred - Cardiovascular Rhythm: regular Heart Sounds: Present: S1 & S2 Extremities: No edema - Gastrointestinal General gastrointestinal: Present: soft, non-tender Rectal Exam: deferred - Genitourinary Male genitourinary: deferred - Integumentary Integumentary: clear, warm - Musculoskeletal Musculoskeletal: strength equal bilaterally - Neurologic Neurologic: no focal deficits - Psychiatric Psychiatric: appropriate mood/affect - Labs CBC & Chem 7: 05/09/20 05:25 05/12/20 05:56 Labs: Abnormal lab results 05/12/20 Range/Units 05:56 BUN 21 H (9-20) mg/dL Glucose 147 H (75-100) mg/dL Calcium 8.2 L (8.4-10.2) mg/dL AST 68 H (5-40) units/L ALT 106 H (7-56) units/L Albumin 3.4 L (3.9-5) g/dL
--- NOTE | 2020-05-12 08:18 | Progress Note ---
Assessment and Plan 34 y/o male with positive COVID testing at outside facility, admitted with acute respiratory failure. 1. Agree with isolation 2. Continue IV steroids for seven days. Essentially today is day 4. 3. Follow up ID recs. 4. Prone position as much as possible during the day and sleep prone at night 5. Guarded prognosis, high risk for decompensation given morbid obesity. Will consider PPV if necessary to avoid intubation. 6. Will speak with RT, need to wean FiO2 as tolerated for sats >88% Subjective Date of service: 05/12/20 Interval history: No acute events. Oxygen not weaned yesterday but sats were good. Objective Vital Signs - 12hr 05/11/20 05/11/20 05/12/20 21:11 23:00 03:16 Temperature 98.4 F Pulse Rate 66 Respiratory 20 18 Rate Blood Pressure 126/76 Blood Pressure [Right] O2 Sat by Pulse 96 96 98 Oximetry 05/12/20 05:19 Temperature 98.2 F Pulse Rate 52 L Respiratory 20 Rate Blood Pressure Blood Pressure 102/38 [Right] O2 Sat by Pulse 95 Oximetry Constitutional: other (No exam secondary to conservation of PPE. Hospitalist to see this am) CBC and BMP: 05/09/20 05:25 05/12/20 05:56 ABG, PT/INR, D-dimer: PT/INR, D-dimer PT 13.7 Sec. (12.2-14.9) 05/08/20 13:30 INR 1.07 (0.87-1.13) 05/08/20 13:30 D-Dimer 9730.56 ng/mlDDU (0-234) H 05/11/20 06:16 Abnormal lab findings: Abnormal Labs 05/08/20 05/08/20 05/08/20 13:30 13:30 13:30 RBC 5.35 H MCV 80 L MCH 27 L Lymph % (Auto) 6.7 L Lymph # 0.6 L Seg Neutrophils % 87.2 H D-Dimer 6025.93 H Sodium Chloride BUN Glucose Calcium Magnesium Ferritin 1530.0 H AST ALT Lactate Dehydrogenase C-Reactive Protein Albumin Coronavirus (PCR) 05/08/20 05/08/20 05/09/20 13:30 Unknown 05:25 RBC 5.12 H MCV 83 L MCH 27 L Lymph % (Auto) 6.9 L Lymph # 0.6 L Seg Neutrophils % 87.2 H D-Dimer Sodium 133 L Chloride 95.9 L BUN Glucose 103 H Calcium Magnesium 2.40 H Ferritin AST 149 H ALT 102 H Lactate Dehydrogenase 870 H C-Reactive Protein 19.70 H Albumin 3.7 L Coronavirus (PCR) Positive A 05/09/20 05/10/20 05/11/20 05:25 06:02 06:16 RBC MCV MCH Lymph % (Auto) Lymph # Seg Neutrophils % D-Dimer Sodium 136 L Chloride BUN Glucose 145 H 142 H 141 H Calcium 8.1 L 8.3 L Magnesium Ferritin AST 94 H 56 H ALT 98 H 84 H Lactate Dehydrogenase C-Reactive Protein Albumin 3.5 L 3.4 L Coronavirus (PCR) 05/11/20 05/11/20 05/11/20 06:16 06:16 06:16 RBC MCV MCH Lymph % (Auto) Lymph # Seg Neutrophils % D-Dimer 9730.56 H Sodium Chloride BUN Glucose Calcium Magnesium Ferritin 1223.0 H AST ALT Lactate Dehydrogenase 762 H C-Reactive Protein 3.10 H Albumin Coronavirus (PCR) 05/12/20 05:56 RBC MCV MCH Lymph % (Auto) Lymph # Seg Neutrophils % D-Dimer Sodium Chloride BUN 21 H Glucose 147 H Calcium 8.2 L Magnesium Ferritin AST 68 H ALT 106 H Lactate Dehydrogenase C-Reactive Protein Albumin 3.4 L Coronavirus (PCR)
--- NOTE | 2020-05-12 10:08 | Consultation ---
History of Present Illness Consult date: 05/12/20 Consult reason: other (Abnormal EKG) History of present illness: 34-year-old female presented with shortness of breath weakness and malaise as we ll as fevers patient has been diagnosed with COVID 19. Patient was noticed to have abnormal EKG cardiology consult was obtained. Past History Past Medical History: No medical history, other ([facility]) Past Surgical History: No surgical history, Other (Reviewed) Social history: single. denies: smoking, alcohol abuse, prescription drug abuse, IV drug use Family history: hypertension Medications and Allergies Allergies Allergy/AdvReac Type Severity Reaction Status Date / Time No Known Allergies Allergy Verified 05/08/20 12:47 Home Medications Medication Instructions Recorded Confirmed Last Taken Type No Known Home Medications [No 05/08/20 05/08/20 Unknown History Reported Home Medications] Active Meds: Active Medications Acetaminophen (Tylenol) 650 mg PO Q4H PRN PRN Reason: Pain MILD(1-3)/Fever >100.5/MESSINA Last Admin: 05/09/20 21:24 Dose: 650 mg Documented by: Azithromycin (Zithromax) 500 mg PO QDAY [facility] Last Admin: 05/11/20 10:57 Dose: 500 mg Documented by: Enoxaparin Sodium (Enoxaparin) 100 mg SUB-Q Q12HR [facility] Guaifenesin (Guaifenesin Dm Syrup) 10 ml PO Q6H PRN PRN Reason: Cough Last Admin: 05/10/20 06:00 Dose: 10 ml Documented by: REMDESIVIR 100 mg/ Sodium (Chloride) 250 mls @ 500 mls/hr IV Q24H [facility] Stop: 05/13/20 15:29 Last Admin: 05/11/20 14:49 Dose: 500 mls/hr Documented by: Sodium Chloride (Nacl 0.9%) 50 mls @ 200 mls/hr IV Q24H [facility] Stop: 05/13/20 15:14 Last Admin: 05/11/20 15:28 Dose: 200 mls/hr Documented by: Methylprednisolone Sodium Succinate (Solu-Medrol) 40 mg IV Q8HR [facility] Last Admin: 05/12/20 05:43 Dose: 40 mg Documented by: Ondansetron HCl (Zofran) 4 mg IV Q8H PRN PRN Reason: Nausea And Vomiting Last Admin: 05/09/20 00:11 Dose: 4 mg Documented by: Sodium Chloride (Sodium Chloride Flush Syringe 10 Ml) 10 ml IV BID POP Last Admin: 05/11/20 22:31 Dose: 10 ml Documented by: Sodium Chloride (Sodium Chloride Flush Syringe 10 Ml) 10 ml IV PRN PRN PRN Reason: LINE FLUSH Review of Systems All systems: negative Constitutional: fever, chills, sweats, fatigue, weakness, malaise Respiratory: cough, shortness of breath, dyspnea on exertion, congestion Physical Examination Vital Signs Temp Pulse Resp BP Pulse Ox 101.2 F H 111 H 24 140/81 92 05/08/20 12:21 05/08/20 12:21 05/08/20 12:21 05/08/20 12:05/08/20 12:21 General appearance: no acute distress, well-nourished HEENT: Positive: PERRL, Mucus Membranes Moist Neck: Positive: neck supple, trachea midline Cardiac: Positive: Reg Rate and Rhythm, S1/S2. Negative: Audible Murmur Lungs: Positive: Decreased Breath Sounds, Rhonchi Neuro: Positive: Grossly Intact Abdomen: Positive: Soft, Active Bowel Sounds. Negative: Tender, Distended Male genitourinary: Positive: normal Skin: Positive: Clear Incision: Cardiac Cath Site Musculoskeletal: No Pain, Normal Range of Motion Extremities: Present: normal. Absent: edema Results 05/09/20 05:25 05/12/20 05:56 Cardiac Enzymes 05/12/20 Range/Units 05:56 AST 68 H (5-40) units/L Comprehensive Metabolic Panel 05/12/20 Range/Units 05:56 Sodium 138 (137-145) mmol/L Potassium 4.9 (3.6-5.0) mmol/L Chloride 102.3 (98-107) mmol/L Carbon Dioxide 24 (22-30) mmol/L BUN 21 H (9-20) mg/dL Creatinine 0.8 (0.8-1.5) mg/dL Glucose 147 H (75-100) mg/dL Calcium 8.2 L (8.4-10.2) mg/dL AST 68 H (5-40) units/L ALT 106 H (7-56) units/L Alkaline Phosphatase 79 (35-129) units/L Total Protein 6.8 (6.3-8.2) g/dL Albumin 3.4 L (3.9-5) g/dL EKG interpretations - Telemetry EKG Rhythm: Sinus Rhythm - EKG Sinus rhythms and dysrhythmias: sinus rhythm Supraventricular dysrhythmia: atrial premature complexe Assessment and Plan 1. Abnormal EKG 2. Viral pneumonia secondary to COVID-19. EKG shows sinus rhythm with APD's and what appears to be preop had APD's with compensatory pauses. Patient has remained hemodynamically stable. Not sure if these episodes appear during sleep. Plan. Recommend conservative monitoring no further work-up indicated continue treatment for viral pneumonitis. Check echocardiogram
[2020-05-12] MEDS: AZITHROMYCIN 250 MG TAB PO SCH (11:00)
[2020-05-12] MEDS: ENOXAPARIN 100 MG/1 ML INJ SUB-Q SCH ×2 (11:00→22:26)
[2020-05-12] MEDS: REMDESIVIR 100 MG in SODIUM CHLORIDE 0.9% 250ML 250 ML IV SCH (16:07)
[2020-05-12] MEDS: SODIUM CHLORIDE 0.9% 50 ML IV SCH (16:07)
[2020-05-13 05:15] LABS: Hematocrit 44.5 % (35.5-45.6); Hemoglobin 14.7 gm/dl (11.8-15.2); Mean Corpuscular HGB Conc 33 % (32-34); Mean Corpuscular Volume 82 fl (84-94); Platelet Count 269 K/mm3 (140-440); Red Blood Count 5.42 M/mm3 (3.65-5.03); Red Cell Distribution Width 13.9 % (13.2-15.2)
[2020-05-13 05:35] LABS: Alanine Aminotransferase 131 units/L (7-56); Albumin 3.4 g/dL (3.9-5); BUN/Creatinine Ratio 26; Blood Urea Nitrogen 21 mg/dL (9-20); Calcium 8.6 mg/dL (8.4-10.2); Hemolysis Index 6
[2020-05-13 05:36] LABS: C-Reactive Protein 1.4 mg/dL (0.00-1.30)
[2020-05-13] MEDS: methylPREDNISolone Sod Succinate 40 MG/1 ML INJ IV SCH ×3 (06:20→21:41)
[2020-05-13] MEDS: ENOXAPARIN 100 MG/1 ML INJ SUB-Q SCH ×2 (10:04→21:41)
--- NOTE | 2020-05-13 11:02 | Progress Note ---
Assessment and Plan 34 y/o male with positive COVID testing at outside facility, admitted with acute respiratory failure. 1. Agree with isolation 2. Continue IV steroids for seven days. Essentially today is day 5. 3. Follow up ID recs. 4. Prone position as much as possible during the day and sleep prone at night 5. Guarded prognosis, high risk for decompensation given morbid obesity. Will consider PPV if necessary to avoid intubation. 6. Continue to wean FiO2 as tolerated for sats >88% Subjective Date of service: 05/13/20 Interval history: Down to 60% on HFNC, still at 14 liters. Sats good. Last one documented at 0300 was 98 Objective Vital Signs - 12hr 05/13/20 05/13/20 03:01 04:34 Temperature 98.1 F Pulse Rate 62 Respiratory 18 Rate Blood Pressure 94/52 O2 Sat by Pulse 98 92 Oximetry Constitutional: other (No exam secondary to conservation of PPE. Hospitalist to see this am) CBC and BMP: 05/13/20 04:20 05/13/20 04:20 ABG, PT/INR, D-dimer: PT/INR, D-dimer PT 13.7 Sec. (12.2-14.9) 05/08/20 13:30 INR 1.07 (0.87-1.13) 05/08/20 13:30 D-Dimer 6456.88 ng/mlDDU (0-234) H 05/13/20 04:20 Abnormal lab findings: Abnormal Labs 05/08/20 05/08/20 05/08/20 13:30 13:30 13:30 WBC RBC 5.35 H MCV 80 L MCH 27 L Lymph % (Auto) 6.7 L Lymph # 0.6 L Seg Neutrophils % 87.2 H D-Dimer 6025.93 H Sodium Chloride BUN Glucose Calcium Magnesium Ferritin 1530.0 H AST ALT Lactate Dehydrogenase C-Reactive Protein Albumin Coronavirus (PCR) 05/08/20 05/08/20 05/09/20 13:30 Unknown 05:25 WBC RBC 5.12 H MCV 83 L MCH 27 L Lymph % (Auto) 6.9 L Lymph # 0.6 L Seg Neutrophils % 87.2 H D-Dimer Sodium 133 L Chloride 95.9 L BUN Glucose 103 H Calcium Magnesium 2.40 H Ferritin AST 149 H ALT 102 H Lactate Dehydrogenase 870 H C-Reactive Protein 19.70 H Albumin 3.7 L Coronavirus (PCR) Positive A 05/09/20 05/10/20 05/11/20 05:25 06:02 06:16 WBC RBC MCV MCH Lymph % (Auto) Lymph # Seg Neutrophils % D-Dimer Sodium 136 L Chloride BUN Glucose 145 H 142 H 141 H Calcium 8.1 L 8.3 L Magnesium Ferritin AST 94 H 56 H ALT 98 H 84 H Lactate Dehydrogenase C-Reactive Protein Albumin 3.5 L 3.4 L Coronavirus (PCR) 05/11/20 05/11/20 05/11/20 06:16 06:16 06:16 WBC RBC MCV MCH Lymph % (Auto) Lymph # Seg Neutrophils % D-Dimer 9730.56 H Sodium Chloride BUN Glucose Calcium Magnesium Ferritin 1223.0 H AST ALT Lactate Dehydrogenase 762 H C-Reactive Protein 3.10 H Albumin Coronavirus (PCR) 05/12/20 05/13/20 05/13/20 05:56 04:20 04:20 WBC RBC MCV MCH Lymph % (Auto) Lymph # Seg Neutrophils % D-Dimer 6456.88 H Sodium Chloride BUN 21 H 21 H Glucose 147 H 162 H Calcium 8.2 L Magnesium Ferritin AST 68 H 51 H ALT 106 H 131 H Lactate Dehydrogenase C-Reactive Protein Albumin 3.4 L 3.4 L Coronavirus (PCR) 05/13/20 05/13/20 05/13/20 04:20 04:20 04:20 WBC 12.1 H RBC 5.42 H MCV 82 L MCH 27 L Lymph % (Auto) Lymph # Seg Neutrophils % D-Dimer Sodium Chloride BUN Glucose Calcium Magnesium Ferritin 1168.0 H AST ALT Lactate Dehydrogenase 550 H C-Reactive Protein 1.40 H Albumin Coronavirus (PCR)
--- NOTE | 2020-05-13 11:25 | Progress Note ---
Subjective Date of service: 05/13/20 Interval history: 34-year-old male with no known past medical history admitted with COVID-19. He notes that his symptoms began approximately 5 days prior to admission, and included dry cough with associated weakness, malaise, shortness of breath and fevers. He went to [facility] to get COVID-19 testing and tested positive at that time. He does note positive exposures to people with COVID-19. Patient is alert and oriented and complains of shortness of breath with minimal effort ID and pulmonary notes reviewed and appreciated Patient seen via face time No physical examination was done today He states his breathing is better but still gets short of breath with mild exertion he denies any other complaints Denies fever or chills Denies chest pain, nausea or abdominal pain Assessment and plan COVID-19 pneumonia ID note reviewed Continue Remdesivir day 4 azithromycin and Rocephin discontinued Discussed with Dr. Siddiqi D-dimer [id number] > 6400 cont. therapeutic Lovenox SQ Discussed with Dr. Siddiqi and he agrees Patient to lie in prone position as much as possible Prognosis guarded Acute hypoxic respiratory failure Pulmonary note reviewed and appreciated Continue oxygen via high flow nasal cannula Continue IV Solu-Medrol per pulmonary recommendations 2-second pause x2 on telemetry monitoring Cardiology consult note reviewed and discussed with Dr. Williamson No further recommendations Continue to monitor Leukocytosis -WBC went up from 8 to 12 Likely secondary to steroids Obesity Discussed with patient regarding weight loss and exercise possible Long-term side effects of obesity were explained Objective - Constitutional Vitals: Vital Signs - 12hr 05/13/20 05/13/20 03:01 04:34 Temperature 98.1 F Pulse Rate 62 Respiratory 18 Rate Blood Pressure 94/52 O2 Sat by Pulse 98 92 Oximetry - Labs CBC & Chem 7: 05/13/20 04:20 05/13/20 04:20 Labs: Abnormal lab results 05/13/20 05/13/20 05/13/20 Range/Units 04:20 04:20 04:20 WBC (4.5-11.0) K/mm3 RBC (3.65-5.03) M/mm3 MCV (84-94) fl MCH (28-32) pg D-Dimer 6456.88 H (0-234) ng/mlDDU BUN 21 H (9-20) mg/dL Glucose 162 H (75-100) mg/dL Ferritin 1168.0 H (13.0-400.0) ng/mL AST 51 H (5-40) units/L ALT 131 H (7-56) units/L Lactate Dehydrogenase (91-180) units/L C-Reactive Protein (0.00-1.30) mg/dL Albumin 3.4 L (3.9-5) g/dL 05/13/20 05/13/20 Range/Units 04:20 04:20 WBC 12.1 H (4.5-11.0) K/mm3 RBC 5.42 H (3.65-5.03) M/mm3 MCV 82 L (84-94) fl MCH 27 L (28-32) pg D-Dimer (0-234) ng/mlDDU BUN (9-20) mg/dL Glucose (75-100) mg/dL Ferritin (13.0-400.0) ng/mL AST (5-40) units/L ALT (7-56) units/L Lactate Dehydrogenase 550 H (91-180) units/L C-Reactive Protein 1.40 H (0.00-1.30) mg/dL Albumin (3.9-5) g/dL
--- NOTE | 2020-05-13 11:37 | Progress Note ---
Assessment and Plan Cultures: Blood culture 05/08/2020 no growth today Urine culture 05/08/2020 no growth today A/P: 34-year-old man past medical history obesity admitted with COVID-19. #COVID-19 pneumonia: Patient hypoxic, as such we will start Remdesivir. Markers slightly better - ferritin 1168, LDH 556, CRP 1.4, ddimer 6456 #Acute hypoxemic respiratory failure: currently on HFo2 60% 14L #Obesity: High risk of poor outcome with COVID-19 #Elevated LFTs: from COVID Recs: -start tociluzimab 8 mg/kg IV x 1 -continue Remdesivir for 5-day course (day 5 of 5) -continue solumedrol 40 mg IV q8h day 5 -continue anticoagulation -IL-6 and quantiferon will follow Courtney Reese MD [facility] ([facility]) Office [phone] Subjective Date of service: 05/13/20 Objective - Exam Narrative Exam: Physical exam deferred due to PPE conservation strategy. Please refer to primary team note for full exam. - Constitutional Vitals: Vital Signs Temp Pulse Resp BP Pulse Ox 98.1 F 62 18 94/52 92 05/13/20 04:34 05/13/20 04:34 05/13/20 04:34 05/13/20 04:34 05/13/20 04:34 Temperature -Last 24 Hours Temperature 98.1 F Temperature 98.1 F Temperature 98.2 F Temperature 98.3 F - Labs CBC & Chem 7: 05/13/20 04:20 05/13/20 04:20 Labs: Abnormal lab results 05/13/20 05/13/20 05/13/20 Range/Units 04:20 04:20 04:20 WBC (4.5-11.0) K/mm3 RBC (3.65-5.03) M/mm3 MCV (84-94) fl MCH (28-32) pg D-Dimer 6456.88 H (0-234) ng/mlDDU BUN 21 H (9-20) mg/dL Glucose 162 H (75-100) mg/dL Ferritin 1168.0 H (13.0-400.0) ng/mL AST 51 H (5-40) units/L ALT 131 H (7-56) units/L Lactate Dehydrogenase (91-180) units/L C-Reactive Protein (0.00-1.30) mg/dL Albumin 3.4 L (3.9-5) g/dL 05/13/20 05/13/20 Range/Units 04:20 04:20 WBC 12.1 H (4.5-11.0) K/mm3 RBC 5.42 H (3.65-5.03) M/mm3 MCV 82 L (84-94) fl MCH 27 L (28-32) pg D-Dimer (0-234) ng/mlDDU BUN (9-20) mg/dL Glucose (75-100) mg/dL Ferritin (13.0-400.0) ng/mL AST (5-40) units/L ALT (7-56) units/L Lactate Dehydrogenase 550 H (91-180) units/L C-Reactive Protein 1.40 H (0.00-1.30) mg/dL Albumin (3.9-5) g/dL
--- NOTE | 2020-05-13 11:38 | Progress Note ---
Assessment and Plan Transient pause, less than 3 sec seen on telemetry COVID 19 pneumonia -on Rendesivir Acute respiratory failure Check a TSH. Avoid AV dimas blocking agents Continue telemetry monitoring. Subjective Date of service: 05/13/20 Interval history: No cardiac event seen on telemetry overnight. Objective Vital Signs Temp Pulse Resp BP Pulse Ox 05/13/20 04:34 98.1 F 62 18 94/52 92 05/13/20 03:01 98 05/12/20 21:14 92 05/12/20 21:08 98.1 F 70 18 107/64 94 05/12/20 21:00 19 94 05/12/20 17:40 96 05/12/20 16:22 98.2 F 65 24 116/56 94 05/12/20 13:00 20 05/12/20 11:43 98.3 F 77 24 108/54 93 - Physical Examination Cardiac: Positive: Reg Rate and Rhythm - Labs and Meds Cardiac Enzymes 05/13/20 05/13/20 Range/Units 04:20 04:20 AST 51 H (5-40) units/L Lactate Dehydrogenase 550 H (91-180) units/L CBC 05/13/20 Range/Units 04:20 WBC 12.1 H (4.5-11.0) K/mm3 RBC 5.42 H (3.65-5.03) M/mm3 Hgb 14.7 (11.8-15.2) gm/dl Hct 44.5 (35.5-45.6) % Plt Count 269 (140-440) K/mm3 Comprehensive Metabolic Panel 05/13/20 Range/Units 04:20 Sodium 137 (137-145) mmol/L Potassium 5.0 (3.6-5.0) mmol/L Chloride 102.2 (98-107) mmol/L Carbon Dioxide 22 (22-30) mmol/L BUN 21 H (9-20) mg/dL Creatinine 0.8 (0.8-1.5) mg/dL Glucose 162 H (75-100) mg/dL Calcium 8.6 (8.4-10.2) mg/dL AST 51 H (5-40) units/L ALT 131 H (7-56) units/L Alkaline Phosphatase 70 (35-129) units/L Total Protein 6.5 (6.3-8.2) g/dL Albumin 3.4 L (3.9-5) g/dL - EKG Sinus rhythms and dysrhythmias: sinus rhythm
[2020-05-13] MEDS: REMDESIVIR 100 MG in SODIUM CHLORIDE 0.9% 250ML 250 ML IV SCH (17:40)
[2020-05-13] MEDS ORDERED: TOCILIZUMAB 400 MG in SODIUM CHLORIDE 0.9% 100 ML IV ONE (18:00)
[2020-05-14] MEDS: methylPREDNISolone Sod Succinate 40 MG/1 ML INJ IV SCH ×3 (05:58→21:39)
--- NOTE | 2020-05-14 09:35 | Progress Note ---
Assessment and Plan Cultures: Blood culture 05/08/2020 no growth today Urine culture 05/08/2020 no growth today A/P: 34-year-old man past medical history obesity admitted with COVID-19. #COVID-19 pneumonia: on Remdesivir. Markers slightly better - ferritin 1168, LDH 556, CRP 1.4, ddimer 6456 #Acute hypoxemic respiratory failure: was on HFo2 60% 14L, today NC 4L #Obesity: High risk of poor outcome with COVID-19 #Elevated LFTs: from COVID, still elevated Recs: -may need home O2 -S/p tociluzimab 8 mg/kg IV x 1 on 05/13 -S/p Remdesivir for 5-day course last 05/13 -continue solumedrol 40 mg IV q8h day 6 of 7 -continue anticoagulation -IL-6 and quantiferon - ordered -daily markers will follow MD [facility] ([facility]) Office [phone] Subjective Date of service: 05/14/20 Principal diagnosis: COVID Interval history: Feels better, now on 4L NC O2, no fever Objective - Exam Narrative Exam: Alert in NAD +NC O2 5L Rest of Physical exam deferred due to PPE conservation strategy. Please refer to primary team note for full exam. - Constitutional Vitals: Vital Signs Temp Pulse Resp BP Pulse Ox 97.3 F L 56 L 18 105/53 94 05/14/20 04:44 05/14/20 04:44 05/14/20 04:44 05/14/20 04:44 05/14/20 08:00 Temperature -Last 24 Hours Temperature 97.3 F Temperature 98.1 F Temperature 98.4 F Temperature 98.1 F - Labs CBC & Chem 7: 05/13/20 04:20 05/13/20 04:20
[2020-05-14] MEDS: ENOXAPARIN 100 MG/1 ML INJ SUB-Q SCH ×2 (09:37→21:40)
--- NOTE | 2020-05-14 10:18 | Progress Note ---
Assessment and Plan 34 y/o male with positive COVID testing at outside facility, admitted with acute respiratory failure. 1. Agree with isolation 2. Continue IV steroids for seven days. Essentially today is day 6. 3. Follow up ID recs. Given therapy on yesterday. 4. Prone position as much as possible during the day and sleep prone at night 5. Guarded prognosis, high risk for decompensation given morbid obesity. Will consider PPV if necessary to avoid intubation. 6. Continue to wean FiO2 as tolerated for sats >88%, now down to 3 liters NC. 7. Hopeful discharge soon. Patient has no funding so will need to try to wean oxygen therapy off if possible. Patient needs to lose weight TAHIRA Subjective Date of service: 05/14/20 Principal diagnosis: COVID Interval history: No acute events. Down to 3 liters NC. Received Actemra and Remdisnivir on yesterday. Objective Vital Signs - 12hr 05/14/20 05/14/20 05/14/20 02:00 04:44 08:00 Temperature 97.3 F L Pulse Rate 56 L Respiratory 18 Rate Blood Pressure 105/53 O2 Sat by Pulse 93 97 94 Oximetry Constitutional: other (No exam secondary to conservation of PPE. Hospitalist to see this am) CBC and BMP: 05/13/20 04:20 05/13/20 04:20 ABG, PT/INR, D-dimer: PT/INR, D-dimer PT 13.7 Sec. (12.2-14.9) 05/08/20 13:30 INR 1.07 (0.87-1.13) 05/08/20 13:30 D-Dimer 6456.88 ng/mlDDU (0-234) H 05/13/20 04:20 Abnormal lab findings: Abnormal Labs 05/08/20 05/08/20 05/08/20 13:30 13:30 13:30 WBC RBC 5.35 H MCV 80 L MCH 27 L Lymph % (Auto) 6.7 L Lymph # 0.6 L Seg Neutrophils % 87.2 H D-Dimer 6025.93 H Sodium Chloride BUN Glucose Calcium Magnesium Ferritin 1530.0 H AST ALT Lactate Dehydrogenase C-Reactive Protein Albumin Coronavirus (PCR) 05/08/20 05/08/20 05/09/20 13:30 Unknown 05:25 WBC RBC 5.12 H MCV 83 L MCH 27 L Lymph % (Auto) 6.9 L Lymph # 0.6 L Seg Neutrophils % 87.2 H D-Dimer Sodium 133 L Chloride 95.9 L BUN Glucose 103 H Calcium Magnesium 2.40 H Ferritin AST 149 H ALT 102 H Lactate Dehydrogenase 870 H C-Reactive Protein 19.70 H Albumin 3.7 L Coronavirus (PCR) Positive A 05/09/20 05/10/20 05/11/20 05:25 06:02 06:16 WBC RBC MCV MCH Lymph % (Auto) Lymph # Seg Neutrophils % D-Dimer Sodium 136 L Chloride BUN Glucose 145 H 142 H 141 H Calcium 8.1 L 8.3 L Magnesium Ferritin AST 94 H 56 H ALT 98 H 84 H Lactate Dehydrogenase C-Reactive Protein Albumin 3.5 L 3.4 L Coronavirus (PCR) 05/11/20 05/11/20 05/11/20 06:16 06:16 06:16 WBC RBC MCV MCH Lymph % (Auto) Lymph # Seg Neutrophils % D-Dimer 9730.56 H Sodium Chloride BUN Glucose Calcium Magnesium Ferritin 1223.0 H AST ALT Lactate Dehydrogenase 762 H C-Reactive Protein 3.10 H Albumin Coronavirus (PCR) 05/12/20 05/13/20 05/13/20 05:56 04:20 04:20 WBC RBC MCV MCH Lymph % (Auto) Lymph # Seg Neutrophils % D-Dimer 6456.88 H Sodium Chloride BUN 21 H 21 H Glucose 147 H 162 H Calcium 8.2 L Magnesium Ferritin AST 68 H 51 H ALT 106 H 131 H Lactate Dehydrogenase C-Reactive Protein Albumin 3.4 L 3.4 L Coronavirus (PCR) 05/13/20 05/13/20 05/13/20 04:20 04:20 04:20 WBC 12.1 H RBC 5.42 H MCV 82 L MCH 27 L Lymph % (Auto) Lymph # Seg Neutrophils % D-Dimer Sodium Chloride BUN Glucose Calcium Magnesium Ferritin 1168.0 H AST ALT Lactate Dehydrogenase 550 H C-Reactive Protein 1.40 H Albumin Coronavirus (PCR)
--- NOTE | 2020-05-14 10:21 | Progress Note ---
Assessment and Plan Transient pause, less than 3 sec seen on telemetry no reoccurrence thus far it is unclear if there is an underlying history of sleep apnea. TSH is normal, 1.35 COVID 19 viral pneumonia Acute respiratory failure Obesity Avoid AV dimas blocking agents Continue telemetry monitoring. Subjective Date of service: 05/14/20 Principal diagnosis: COVID Interval history: There were no events on telemetry overnight. Objective Vital Signs Temp Pulse Resp BP BP Pulse Ox 05/14/20 08:00 94 05/14/20 04:44 97.3 F L 56 L 18 105/53 97 05/14/20 02:00 93 05/13/20 21:27 98.1 F 63 20 131/69 97 05/13/20 20:00 94 05/13/20 16:01 98.4 F 77 18 104/55 94 05/13/20 13:10 93 05/13/20 11:47 98.1 F 63 16 111/61 92 05/13/20 10:50 98 - Physical Examination Cardiac: Positive: Bradycardia
[2020-05-14 11:29] LABS: C-Reactive Protein 1.2 mg/dL (0.00-1.30)
--- NOTE | 2020-05-14 11:45 | Progress Note ---
Assessment and Plan Assessment and plan: COVID-19 pneumonia. Continue on Remdesivir. Markers slightly better - ferritin 1168, LDH 556, CRP 1.4, ddimer 6456. -S/p tociluzimab 8 mg/kg IV x 1 on 05/13 -S/p Remdesivir for 5-day course last 05/13 -continue solumedrol 40 mg IV q8h Acute hypoxemic respiratory failure. Continue O2 to maintain sats greater than 92%. Patient may need home oxygen. Obesity: High risk of poor outcome with COVID-19 Elevated LFTs: from COVID, still elevated Disposition. Anticipate discharge in am History Interval history: No new issues overnight Hospitalist Physical - Constitutional Vitals: Temp Pulse Resp BP Pulse Ox 97.3 F L 56 L 18 105/53 94 05/14/20 04:44 05/14/20 04:44 05/14/20 04:44 05/14/20 04:44 05/14/20 08:00 General appearance: Present: no acute distress - EENT Eyes: Present: PERRL, EOM intact ENT: hearing intact, clear oral mucosa, dentition normal - Neck Neck: Present: supple, normal ROM - Respiratory Respiratory effort: normal Respiratory: bilateral: CTA - Cardiovascular Rhythm: regular Heart Sounds: Present: S1 & S2. Absent: gallop, rub - Extremities Extremities: no ischemia, No edema, Full ROM - Abdominal General gastrointestinal: soft, non-tender, non-distended, normal bowel sounds - Integumentary Integumentary: Present: clear, warm, dry - Neurologic Neurologic: CNII-XII intact, moves all extremities Results - Labs CBC & Chem 7: 05/13/20 04:20 05/13/20 04:20 Labs: Laboratory Last Values WBC 12.1 K/mm3 (4.5-11.0) H 05/13/20 04:20 RBC 5.42 M/mm3 (3.65-5.03) H 05/13/20 04:20 Hgb 14.7 gm/dl (11.8-15.2) 05/13/20 04:20 Hct 44.5 % (35.5-45.6) 05/13/20 04:20 MCV 82 fl (84-94) L 05/13/20 04:20 MCH 27 pg (28-32) L 05/13/20 04:20 MCHC 33 % (32-34) 05/13/20 04:20 RDW 13.9 % (13.2-15.2) 05/13/20 04:20 Plt Count 269 K/mm3 (140-440) 05/13/20 04:20 Lymph % (Auto) 6.9 % (13.4-35.0) L 05/09/20 05:25 Coke % (Auto) 5.8 % (0.0-7.3) 05/09/20 05:25 Eos % (Auto) 0.0 % (0.0-4.3) 05/09/20 05:25 Baso % (Auto) 0.1 % (0.0-1.8) 05/09/20 05:25 Lymph # 0.6 K/mm3 (1.2-5.4) L 05/09/20 05:25 [place] # 0.5 K/mm3 (0.0-0.8) 05/09/20 05:25 Eos # 0.0 K/mm3 (0.0-0.4) 05/09/20 05:25 Baso # 0.0 K/mm3 (0.0-0.1) 05/09/20 05:25 Seg Neutrophils % 87.2 % (40.0-70.0) H 05/09/20 05:25 Seg Neutrophils # 7.2 K/mm3 (1.8-7.7) 05/09/20 05:25 PT 13.7 Sec. (12.2-14.9) 05/08/20 13:30 INR 1.07 (0.87-1.13) 05/08/20 13:30 D-Dimer 3534.85 ng/mlDDU (0-234) H 05/14/20 10:00 VBG pH 7.411 (7.320-7.420) 05/08/20 13:30 Sodium 137 mmol/L (137-145) 05/13/20 04:20 Potassium 5.0 mmol/L (3.6-5.0) 05/13/20 04:20 Chloride 102.2 mmol/L (98-107) 05/13/20 04:20 Carbon Dioxide 22 mmol/L (22-30) 05/13/20 04:20 Anion Gap 18 mmol/L 05/13/20 04:20 BUN 21 mg/dL (9-20) H 05/13/20 04:20 Creatinine 0.8 mg/dL (0.8-1.5) 05/13/20 04:20 Estimated GFR > 60 ml/min 05/13/20 04:20 BUN/Creatinine Ratio 26 % 05/13/20 04:20 Glucose 162 mg/dL (75-100) H 05/13/20 04:20 Lactic Acid 1.20 mmol/L (0.7-2.0) 05/08/20 13:30 Calcium 8.6 mg/dL (8.4-10.2) 05/13/20 04:20 Magnesium 2.40 mg/dL (1.7-2.3) H 05/08/20 13:30 Ferritin 1096.0 ng/mL (13.0-400.0) H 05/14/20 10:00 Total Bilirubin 0.50 mg/dL (0.1-1.2) 05/13/20 04:20 Direct Bilirubin < 0.2 mg/dL (0-0.2) 05/08/20 13:30 AST 51 units/L (5-40) H 05/13/20 04:20 ALT 131 units/L (7-56) H 05/13/20 04:20 Alkaline Phosphatase 70 units/L (35-129) 05/13/20 04:20 Lactate Dehydrogenase 532 units/L (91-180) H 05/14/20 10:00 C-Reactive Protein 1.20 mg/dL (0.00-1.30) 05/14/20 10:00 NT-Pro-B Natriuret Pep 158.4 pg/mL (0-450) 05/09/20 05:25 Total Protein 6.5 g/dL (6.3-8.2) 05/13/20 04:20 Albumin 3.4 g/dL (3.9-5) L 05/13/20 04:20 Albumin/Globulin Ratio 1.1 % 05/13/20 04:20 Procalcitonin 0.13 ng/mL (<0.15) 05/08/20 13:30 TSH 1.350 mlU/mL (0.270-4.200) 05/13/20 13:49 Free T4 1.17 ng/dL (0.76-1.46) 05/13/20 13:49 Urine Color Yellow (Yellow) 05/08/20 15:10 Urine Turbidity Clear (Clear) 05/08/20 15:10 Urine pH 6.0 (5.0-7.0) 05/08/20 15:[address] 1.013 (1.003-1.030) 05/08/20 15:10 Urine Protein 30 mg/dl mg/dL (Negative) 05/08/20 15:10 Urine Glucose (UA) Neg mg/dL (Negative) 05/08/20 15:10 Urine Ketones Neg mg/dL (Negative) 05/08/20 15:10 Urine Blood Sm (Negative) 05/08/20 15:10 Urine Nitrite Neg (Negative) 05/08/20 15:10 Urine Bilirubin Neg (Negative) 05/08/20 15:10 Urine Urobilinogen < 2.0 mg/dL (<2.0) 05/08/20 15:10 Ur Leukocyte Esterase Neg (Negative) 05/08/20 15:10 Urine WBC (Auto) < 1.0 /HPF (0.0-6.0) 05/08/20 15:10 Urine RBC (Auto) 1.0 /HPF (0.0-6.0) 05/08/20 15:10 Coronavirus (PCR) Positive (Negative) A 05/08/20 Unknown Microbiology: Microbiology 05/08/20 13:30 Peripheral/Venous Blood Culture - Final NO GROWTH AFTER 5 DAYS 05/08/20 13:30 Peripheral/Venous Blood Culture - Final NO GROWTH AFTER 5 DAYS Steven/IV: Voiding Method Toilet IV Catheter Type [Left Forearm Peripheral IV ] IV Catheter Type [Right INT / Saline Lock Antecubital] Active Medications - Current Medications Current Medications: Generic Name Dose Route Start Last Admin Trade Name Freq PRN Reason Stop Dose Admin Acetaminophen 650 mg 05/08/20 16:11 05/09/20 21:24 Tylenol PO 650 mg Q4H PRN Administration Pain MILD(1-3)/Fever >100.5/MESSINA Enoxaparin Sodium 100 mg 05/12/20 10:00 05/14/20 09:37 Enoxaparin SUB-Q 100 mg Q12HR POP Administration Guaifenesin 10 ml 05/09/20 05:23 05/10/20 06:00 Guaifenesin Dm Syrup PO 10 ml Q6H PRN Administration Cough Methylprednisolone Sodium Succinate 40 mg 05/09/20 09:10 05/14/20 05:58 Solu-Medrol IV 40 mg Q8HR POP Administration Ondansetron HCl 4 mg 05/08/20 16:11 05/09/20 00:11 Zofran IV 4 mg Q8H PRN Administration Nausea And Vomiting Sodium Chloride 10 ml 05/08/20 22:00 05/14/20 09:37 Sodium Chloride Flush Syringe 10 Ml IV 10 ml BID POP Administration Sodium Chloride 10 ml 05/08/20 16:11 Sodium Chloride Flush Syringe 10 Ml IV PRN PRN LINE FLUSH
[2020-05-15 05:43] LABS: C-Reactive Protein 0.6 mg/dL (0.00-1.30)
[2020-05-15] MEDS: methylPREDNISolone Sod Succinate 40 MG/1 ML INJ IV SCH ×2 (06:17→14:49)
--- NOTE | 2020-05-15 08:41 | Discharge Summary ---
Providers - Providers Date of Admission: 05/08/20 16:19 Date of discharge: 05/15/20 Attending physician: ANDREE PANDYA 05/08/20 17:06 Consult to Physician [CONS] Routine Comment: Consulting Provider: DEMETRIA AWAN Physician Instructions: Reason For Exam: COVID 05/08/20 17:07 Consult to Physician [CONS] Routine Comment: Consulting Provider: AUGUST CASAS Physician Instructions: Reason For Exam: COVID 05/11/20 12:01 Consult to Physician [CONS] Routine Comment: Consulting Provider: AARON COPPOLA Physician Instructions: Reason For Exam: 2 second and 1.5 sec pause Primary care physician: FISHER GILL NET Hospitalization Reason for admission: COVID pna Condition: Stable Hospital course: 34-year-old male with past medical history of obesity was admitted with COVID-19 pneumonia and acute hypoxemic respiratory failure. Patient was noted to have elevated inflammatory markers and was seen by ID and pulmonary consultation. Patient received high flow oxygen which was later weaned to 2 L of oxygen at discharge. Inflammatory markers improved throughout hospitalization. Patient was also noted to have elevated LFTs which was felt to be secondary to COVID infection. Patient received tociluzimab 8 mg/kg IV x 1 on 05/13, Remdesivir for 5-day course last 05/13 and 7-day course of Solu-Medrol 40 mg IV every 8 hours. ID and pulmonary felt patient could discharge home with follow-up. Steroid taper at discharge. Dedicated discharge time 35 minutes. Disposition: - TO HOME OR SELFCARE Time spent for discharge: 32 - Discharge Diagnoses (1) Sepsis Status: Acute (2) Acute hypoxemic respiratory failure Status: Acute (3) Bilateral pneumonia Status: Acute Qualifiers: Pneumonia type: due to unspecified organism Lung location: unspecified part of lung Qualified Code(s): J18.9 - Pneumonia, unspecified organism (4) COVID-19 Status: Acute (5) Hypoxia Status: Acute (6) Obesity hypoventilation syndrome Status: Acute Core Measure Documentation - Palliative Care Palliative Care/ Comfort Measures: Not Applicable - Core Measures Any of the following diagnoses?: none Exam - Constitutional Vitals: Temp Pulse Resp BP Pulse Ox 98.3 F 63 20 101/46 95 05/15/20 05:21 05/15/20 05:21 05/15/20 05:21 05/15/20 05:21 05/15/20 05:21 General appearance: Present: no acute distress, well-nourished - EENT Eyes: Present: PERRL ENT: hearing intact, clear oral mucosa - Neck Neck: Present: supple, normal ROM - Respiratory Respiratory effort: normal Respiratory: bilateral: CTA - Cardiovascular Heart Sounds: Present: S1 & S2. Absent: rub, click - Extremities Extremities: pulses symmetrical, No edema Peripheral Pulses: within normal limits - Abdominal General gastrointestinal: Present: soft, non-tender, non-distended, normal bowel sounds Male genitourinary: Present: normal - Integumentary Integumentary: Present: clear, warm, dry - Musculoskeletal Musculoskeletal: gait normal, strength equal bilaterally - Psychiatric Psychiatric: appropriate mood/affect, intact judgment & insight - Neurologic Neurologic: CNII-XII intact, moves all extremities Plan Activity: advance as tolerated Weight Bearing Status: Weight Bear as Tolerated Diet: regular Durable Medical Equipment Needed Upon Discharge: Oxygen Follow up with: PRIMARY CARE, [Primary Care Provider] - 3-5 Days Prescriptions: predniSONE [Deltasone] 20 mg PO QDAY #24 tab
--- NOTE | 2020-05-15 08:57 | Progress Note ---
Assessment and Plan Cultures: Blood culture 05/08/2020 no growth today Urine culture 05/08/2020 no growth today A/P: 34-year-old man past medical history obesity admitted with COVID-19. #COVID-19 pneumonia: on Remdesivir. Markers slightly better - ferritin 1168, LDH 556, CRP 1.4, ddimer 6456 #Acute hypoxemic respiratory failure: was on HFo2 60% 14L, today NC 2L #Obesity: High risk of poor outcome with COVID-19 #Elevated LFTs: from COVID, still elevated Recs: -ok to d/c with Pulm clinic f/u -S/p tociluzimab 8 mg/kg IV x 1 on 05/13 -S/p Remdesivir for 5-day course last 05/13 -S/p solumedrol 40 mg IV q8h day 7 of 7 - needs oral steroid taper per pulmonary -f/y IL-6 and quantiferon - ordered will sign off Courtney Reese MD [facility] ([facility]) Office [phone] Subjective Date of service: 05/15/20 Principal diagnosis: COVID Interval history: Feels much better, now on 2L NC O2, no fever Objective - Exam Narrative Exam: Alert in NAD +NC O2 2L Rest of Physical exam deferred due to PPE conservation strategy. Please refer to primary team note for full exam. - Constitutional Vitals: Vital Signs Temp Pulse Resp BP Pulse Ox 98.3 F 63 20 101/46 95 05/15/20 05:21 05/15/20 05:21 05/15/20 05:21 05/15/20 05:21 05/15/20 08:43 Temperature -Last 24 Hours Temperature 98.3 F Temperature 98.5 F Temperature 98.2 F Temperature 97.4 F - Labs CBC & Chem 7: 05/13/20 04:20 05/13/20 04:20 Labs: Abnormal lab results 05/14/20 05/14/20 05/14/20 Range/Units 10:00 10:00 10:00 D-Dimer 3534.85 H (0-234) ng/mlDDU Ferritin 1096.0 H (13.0-400.0) ng/mL Lactate Dehydrogenase 532 H (91-180) units/L 05/15/20 05/15/20 05/15/20 Range/Units 05:13 05:13 05:13 D-Dimer 1854.93 H (0-234) ng/mlDDU Ferritin 911.3 H (13.0-400.0) ng/mL Lactate Dehydrogenase 394 H (91-180) units/L
[2020-05-15] MEDS: ENOXAPARIN 100 MG/1 ML INJ SUB-Q SCH (10:15)
--- NOTE | 2020-05-15 10:15 | Progress Note ---
Assessment and Plan Transient pause, less than 3 sec seen on telemetry no reoccurrence thus far it is unclear if there is an underlying history of sleep apnea. TSH is normal, 1.35 COVID 19 viral pneumonia Acute respiratory failure Obesity Avoid AV dimas blocking agents. Continue telemetry monitoring. Consider further outpatient evaluation for sleep apnea. Subjective Date of service: 05/15/20 Principal diagnosis: COVID Interval history: There were no events on telemetry overnight. Objective Vital Signs Temp Pulse Resp BP Pulse Ox 05/15/20 08:43 95 05/15/20 05:21 98.3 F 63 20 101/46 95 05/14/20 22:57 96 05/14/20 22:49 98.5 F 65 20 134/70 94 05/14/20 17:30 98.2 F 75 20 108/52 95 05/14/20 11:44 97.4 F L 70 20 105/54 98 - Physical Examination Narrative exam: Deferred due to isolation protocol. Cardiac: Positive: Bradycardia - Labs and Meds Cardiac Enzymes 05/14/20 05/15/20 Range/Units 10:00 05:13 Lactate Dehydrogenase 532 H 394 H (91-180) units/L
[2020-05-15 12:02] VITALS: BP 109/62
--- NOTE | 2020-05-15 13:42 | Progress Note ---
Assessment and Plan 34 y/o male with positive COVID testing at outside facility, admitted with acute respiratory failure. 1. Last day of IV solmedrol. Will need steroid taper as follows: 60 daily for 3 days, 40 daily for 3 days, 20 daily 2. Hopeful walk tests proves that patient does not need oxygen 3. No objection to discharge. Subjective Date of service: 05/15/20 Principal diagnosis: COVID Interval history: No acute events. Down to 1 liter NC. Discharge order in place for today. Objective Vital Signs - 12hr 05/15/20 05/15/20 05/15/20 05:21 08:43 11:10 Temperature 98.3 F 98.3 F Pulse Rate 63 74 Respiratory 20 20 Rate Blood Pressure 101/46 109/62 O2 Sat by Pulse 95 95 94 Oximetry Constitutional: other (No exam secondary to conservation of PPE. Hospitalist to see this am) CBC and BMP: 05/13/20 04:20 05/13/20 04:20 ABG, PT/INR, D-dimer: PT/INR, D-dimer PT 13.7 Sec. (12.2-14.9) 05/08/20 13:30 INR 1.07 (0.87-1.13) 05/08/20 13:30 D-Dimer 1854.93 ng/mlDDU (0-234) H 05/15/20 05:13 Abnormal lab findings: Abnormal Labs 05/08/20 05/08/20 05/08/20 13:30 13:30 13:30 WBC RBC 5.35 H MCV 80 L MCH 27 L Lymph % (Auto) 6.7 L Lymph # 0.6 L Seg Neutrophils % 87.2 H D-Dimer 6025.93 H Sodium Chloride BUN Glucose Calcium Magnesium Ferritin 1530.0 H AST ALT Lactate Dehydrogenase C-Reactive Protein Albumin Coronavirus (PCR) 05/08/20 05/08/20 05/09/20 13:30 Unknown 05:25 WBC RBC 5.12 H MCV 83 L MCH 27 L Lymph % (Auto) 6.9 L Lymph # 0.6 L Seg Neutrophils % 87.2 H D-Dimer Sodium 133 L Chloride 95.9 L BUN Glucose 103 H Calcium Magnesium 2.40 H Ferritin AST 149 H ALT 102 H Lactate Dehydrogenase 870 H C-Reactive Protein 19.70 H Albumin 3.7 L Coronavirus (PCR) Positive A 05/09/20 05/10/20 05/11/20 05:25 06:02 06:16 WBC RBC MCV MCH Lymph % (Auto) Lymph # Seg Neutrophils % D-Dimer Sodium 136 L Chloride BUN Glucose 145 H 142 H 141 H Calcium 8.1 L 8.3 L Magnesium Ferritin AST 94 H 56 H ALT 98 H 84 H Lactate Dehydrogenase C-Reactive Protein Albumin 3.5 L 3.4 L Coronavirus (PCR) 05/11/20 05/11/20 05/11/20 06:16 06:16 06:16 WBC RBC MCV MCH Lymph % (Auto) Lymph # Seg Neutrophils % D-Dimer 9730.56 H Sodium Chloride BUN Glucose Calcium Magnesium Ferritin 1223.0 H AST ALT Lactate Dehydrogenase 762 H C-Reactive Protein 3.10 H Albumin Coronavirus (PCR) 05/12/20 05/13/20 05/13/20 05:56 04:20 04:20 WBC RBC MCV MCH Lymph % (Auto) Lymph # Seg Neutrophils % D-Dimer 6456.88 H Sodium Chloride BUN 21 H 21 H Glucose 147 H 162 H Calcium 8.2 L Magnesium Ferritin AST 68 H 51 H ALT 106 H 131 H Lactate Dehydrogenase C-Reactive Protein Albumin 3.4 L 3.4 L Coronavirus (PCR) 05/13/20 05/13/20 05/13/20 04:20 04:20 04:20 WBC 12.1 H RBC 5.42 H MCV 82 L MCH 27 L Lymph % (Auto) Lymph # Seg Neutrophils % D-Dimer Sodium Chloride BUN Glucose Calcium Magnesium Ferritin 1168.0 H AST ALT Lactate Dehydrogenase 550 H C-Reactive Protein 1.40 H Albumin Coronavirus (PCR) 05/14/20 05/14/20 05/14/20 10:00 10:00 10:00 WBC RBC MCV MCH Lymph % (Auto) Lymph # Seg Neutrophils % D-Dimer 3534.85 H Sodium Chloride BUN Glucose Calcium Magnesium Ferritin 1096.0 H AST ALT Lactate Dehydrogenase 532 H C-Reactive Protein Albumin Coronavirus (PCR) 05/15/20 05/15/20 05/15/20 05:13 05:13 05:13 WBC RBC MCV MCH Lymph % (Auto) Lymph # Seg Neutrophils % D-Dimer 1854.93 H Sodium Chloride BUN Glucose Calcium Magnesium Ferritin 911.3 H AST ALT Lactate Dehydrogenase 394 H C-Reactive Protein Albumin Coronavirus (PCR)
== END 2020-05-15 15:37 | disposition home or self-care (01) | DRG 871 ==
LOC: ED 12:11 → 3A 16:19
PROVIDERS: ADMIT Internal Medicine; ATTEND Hospitalist
DX: A41.89 Other specified sepsis (principal); U07.1 COVID-19; J12.89 Other viral pneumonia; J96.01 Acute respiratory failure with hypoxia; E66.2 Morbid (severe) obesity with alveolar hypoventilation; Z68.33 Body mass index [BMI] 33.0-33.9, adult; Z82.49 Family history of ischemic heart disease and other diseases of the circulatory system; Z71.3 Dietary counseling and surveillance
CPT/HCPCS: 36415; 71045; 80048; 80053; 80076; 81001; 82140; 82164; 82728; 82805; 83615; 83735; 83880; 84145; 84439; 84443; 85025; 85027; 85379; 85610; 86140; 87040; 87086; 93005; 94760; G0378; J0456; J0696; J1100; J1644; J1650; J2270; J2405; J2920; J7030; J7050; U0003-CS